=== PATIENT | female | born 1975 | race African-American/Black ===

== ENCOUNTER 2024-08-14 21:19 | Inpatient (IN) | payer OTHER ==
[~2024-08-14] VITALS: Ht 165.1 cm; Wt 77.1 kg
[2024-08-14 22:17] LABS: Basophils # (auto) 0.1 10 ^3/uL (0-0.2); Basophils % (auto) 1.4 % (0.0-2.0); Eosinophils # (auto) 0.1 10 ^3/uL (0-0.8); Eosinophils % (auto) 0.8 % (0.0-7.0); Hematocrit 38.8 % (36.0-46.0); Hemoglobin 12.6 g/dL (12.2-16.2); Lymphocytes # (auto) 2.1 10 ^3/uL (0.4-5.4); Lymphocytes % (auto) 28.9 % (10.0-50.0); Mean Corpuscular Hemoglobin 28.3 pg (28.0-32.0); Mean Corpuscular Hgb Conc. 32.4 g/dL (32.0-36.0); Mean Corpuscular Volume 87.2 fL (80.0-100.0); Monocytes # (auto) 0.7 10 ^3/uL (0-1.3); Monocytes % (auto) 10.1 % (0.0-12.0); Neutrophils # (auto) 4.3 10 ^3/uL (1.6-8.6); Neutrophils % (auto) 58.8 % (37.0-80.0); Nucleated Red Blood Cells % 0.2 %; Platelet Count (auto) 230 10^3/uL (140-450); Red Blood Cells 4.45 10^6/uL (4.0-5.20); Red Cell Distribution Width 14.2 % (11.8-14.3); White Blood Cell 7.4 10^3/uL (4.4-10.8)
[2024-08-14 22:42] LABS: Alanine Aminotransferase 15 U/L (7-40); Albumin 4.3 g/dL (3.2-4.8); Alkaline Phosphatase 60 U/L (46-116); Anion Gap 5 (5-15); Aspartate Aminotransferase 14 U/L (13-40); BUN/Creatinine Ratio 10.5 (10.0-20.0); Calcium 9.9 mg/dL (8.7-10.4); Carbon Dioxide 27 mmol/L (20-31); Glucose 97 mg/dL (74-106); Lipase 31 U/L (12-53); Potassium 4.4 mmol/L (3.5-5.1); Sodium 140 mmol/L (136-145); Total Protein 7.8 g/dL (5.7-8.2)
[2024-08-14 22:43] LABS: Bilirubin, Total 0.8 mg/dL (0.2-1.0)
[2024-08-14 22:45] LABS: Blood Urea Nitrogen 8 mg/dL (9-23); Chloride 108 mmol/L (98-107)
--- NOTE | 2024-08-14 23:53 | ED.PDOC ---
GI ASSESSMENT HPI Comments 49-year-old female who came to ER for abdominal pain. Patient has been complaining of lower abdominal pain for the past 3 days, intermittent, stabbing, associated bouts of nausea and vomiting. Denies any diarrhea. States pain worsened today a checkup to the ER. Chief Complaint: Abdominal Pain Time Seen by MD: 23:51 Primary Care Provider: n/a Reviewed Notes: Nurses Notes Allergies: Coded Allergies: NO KNOWN ALLERGIES (Unverified , 08/14/24) Information Source: Patient Mode of Arrival: Ambulatory Timing: Days Duration: Intermittent Prehospital treatment: None Quality: Sharp, Stabbing Review of Systems REVIEW OF SYSTEMS: No fever, no chills, or fatigue HEENT: No sore throat, no earache, no congestion, no neck pain. Cardiac: No chest pain. No palpitations. Lungs: No shortness of breath, no cough. GI: (+) nausea, (+) vomiting, no diarrhea, no constipation, (+) abdominal pain : No dysuria, frequency, or urgency. No hematuria. Musculoskeletal: No joint pain , no joint swelling, no extremity edema. Skin: No rash, no itching. Neuro: No headache, no dizziness, no weakness Vital Signs Vital Signs Date Time Temp Pulse Resp B/P (MAP) Pulse Ox O2 Delivery O2 Flow Rate FiO2 08/15/24 01:19 66 20 104/76 (85) 100 08/14/24 23:56 Room Air* 0 21 08/14/24 23:41 98.4 98.4 Physical Exam General: Awake, alert and oriented. No acute distress. Skin: Skin in warm, dry and intact. Appropriate color for ethnicity. Nailbeds pink with no cyanosis. HEENT: The head is normocephalic and atraumatic. Conjunctivae are clear without exudates or hemorrhage. Sclera is non-icteric. EOM are intact. No signs of nystagmus. Eyelids are normal in appearance without swelling or lesions. Oral mucosa is pink and moist Neck: The neck is supple with normal range of motion. No JVD. Cardiac: Heart rate and rhythm are normal. No murmurs, gallops, or rubs are auscultated. Respiratory: No signs of respiratory distress. Lung sounds are clear in all lobes bilaterally without rales, ronchi, or wheezes. Abdominal: Abdomen is soft, non-tender without distention. Bowel sounds are present and normoactive in all four quadrants. Extremities: Upper and lower extremities are atraumatic in appearance without deformity or edema. Neurological: The patient is awake, alert and oriented to person, place, and time with normal speech. Speech is clear. There is no facial asymmetry. Psychiatric: Appropriate mood and affect. Good judgement and insight. No visual or auditory hallucinations. 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 Was a procedure done?: No GI differential Dx Differential Diagnosis: Diverticular disease, Gastritis/PUD, Gastroenteritis, Ovarian cyst/torsion, Pancreatitis, UTI, Urolithiasis, Food Poisoning X-Ray, Labs, Meds, VS Vital Signs Date Time Temp Pulse Resp B/P (MAP) Pulse Ox O2 Delivery O2 Flow Rate FiO2 08/15/24 01:19 66 20 104/76 (85) 100 08/15/24 01:08 66 20 104/76 08/15/24 00:17 98 18 127/64 08/14/24 23:56 77 19 97 Room Air* 0 21 08/14/24 23:55 18 20 127/80 08/14/24 23:41 98.4 76 20 112/75 (87) 100 98.4 08/14/24 22:05 98.1 85 16 124/80 (95) 99 98.1 Lab Test 08/14/24 22:06 Range/Units White Blood Count 7.4 4.4-10.8 10^3/uL Red Blood Count 4.45 4.0-5.20 10^6/uL Hemoglobin 12.6 12.2-16.2 g/dL Hematocrit 38.8 36.0-46.0 % Mean Corpuscular Volume 87.2 80.0-100.0 fL Mean Corpuscular Hemoglobin 28.3 28.0-32.0 pg Mean Corpuscular Hemoglobin Concent 32.4 32.0-36.0 g/dL Red Cell Distribution Width 14.2 11.8-14.3 % Platelet Count 230 140-450 10^3/uL Mean Platelet Volume 7.9 6.9-10.8 fL Neutrophils (%) (Auto) 58.8 37.0-80.0 % Lymphocytes (%) (Auto) 28.9 10.0-50.0 % Monocytes (%) (Auto) 10.1 0.0-12.0 % Eosinophils (%) (Auto) 0.8 0.0-7.0 % Basophils (%) (Auto) 1.4 0.0-2.0 % Neutrophils # (Auto) 4.3 1.6-8.6 10 ^3/uL Lymphocytes # (Auto) 2.1 0.4-5.4 10 ^3/uL Monocytes # (Auto) 0.7 0-1.3 10 ^3/uL Eosinophils # (Auto) 0.1 0-0.8 10 ^3/uL Basophils # (Auto) 0.1 0-0.2 10 ^3/uL Nucleated Red Blood Cells 0.2 % Sodium Level 140 136-145 mmol/L Potassium Level 4.4 3.5-5.1 mmol/L Chloride Level 108 H 98-107 mmol/L Carbon Dioxide Level 27 20-31 mmol/L Anion Gap 5 5-15 Blood Urea Nitrogen 8 L 9-23 mg/dL Creatinine 0.76 0.550-1.02 mg/dL Glomerular Filtration Rate Calc 97 >90 mL/min BUN/Creatinine Ratio 10.5 10.0-20.0 Serum Glucose 97 74-106 mg/dL Calcium Level 9.9 8.7-10.4 mg/dL Total Bilirubin 0.8 0.2-1.0 mg/dL Aspartate Amino Transferase (AST) 14 13-40 U/L Alanine Aminotransferase (ALT) 15 7-40 U/L Alkaline Phosphatase 60 46-116 U/L Total Protein 7.8 5.7-8.2 g/dL Albumin 4.3 3.2-4.8 g/dL Lipase 31 12-53 U/L Current Medications Medications (Trade) Dose Ordered Sig/Jorge A Route Start Time Stop Time Status Last Admin Sodium Chloride 1,000 ml @ 1,000 mls/hr Q1H ONCE IV 08/14/24 23:30 08/15/24 00:29 DC 08/14/24 23:55 Ondansetron HCl (Zofran) 4 mg ONCE ONCE IV 08/14/24 23:30 08/14/24 23:31 DC 08/14/24 23:55 Morphine Sulfate 2 mg ONCE ONCE IV 08/14/24 23:30 08/14/24 23:31 DC 08/14/24 23:55 Ketorolac Tromethamine (Toradol Injection) 15 mg ONCE ONCE IV 08/14/24 23:30 08/14/24 23:31 DC 08/14/24 23:55 Metoclopramide HCl (Reglan Injection) 10 mg ONCE ONCE IV 08/15/24 00:45 08/15/24 00:46 DC 08/15/24 01:07 Morphine Sulfate 4 mg ONCE ONCE IV 08/15/24 01:15 08/15/24 01:16 DC 08/15/24 01:08 CT OF THE ABDOMEN AND PELVIS WITH CONTRAST. HISTORY: Left lower quadrant pain, constipation, vomiting COMPARISON: None TECHNIQUE: Helical axial CT images of the abdomen and pelvis were obtained with intravenous contrast. Multiplanar reformats. One or more of the following radiation dose reduction techniques were used for this examination: automated exposure control, adjustment of the mA and/or kV according to patient size, use of iterative reconstruction technique. FINDINGS: Subpleural nodular atelectasis/scarring in the left lower lobe. Serpiginous, vascular lesion in the lingula may represent a pulmonary arterial venous malformation but is otherwise incompletely characterized. Similar smaller findings along the medial left mediastinal/pleural margins. Liver: No discrete hepatic lesions identified. Gallbladder and biliary system: No sizable, radiopaque cholelithiasis or biliary ductal dilatation. Pancreas: Negative. Spleen: Negative. Adrenal Glands: Negative. Kidneys and collecting system: No hydroureteronephrosis. Small cyst in the left upper pole. Retroperitoneum: No evidence of abdominal aortic aneurysm. Lymph nodes: No discretely enlarged lymph nodes identified. Bowel: No evidence of bowel obstruction. Normal caliber appendix. Sigmoid diverticulosis. Thickening and pericolonic inflammation involving the mid to distal sigmoid in the left hemipelvis. No sizable pericolonic fluid collections identified at this time. Pelvis: No sizable bladder calculus. Osseous structures: No destructive osseous lesions identified. IMPRESSION: Sigmoid colitis/diverticulitis. Recommend follow-up to resolution to exclude any underlying lesions. No sizable pericolonic fluid collections identified at this time. Pulmonary findings as above. Time of 1ST Reevaluation: 23:49 Reevaluation 1ST: Unchanged Patient Education/Counseling: Diagnosis, Treatment Family Education/Counseling: No Family Present Departure 1 Departure Time of Disposition: 01:40 Impression: Primary Impression: Diverticulitis Disposition: ADMITTED INPATIENT Condition: Stable Comments Extensive evaluation was performed in attempt to identify or rule out: (See differential diagnosis section) The following tests were ordered, and results were reviewed by me: (See diagnostic results section) The following test were independently interpreted by me: N/A I reviewed and agreed with the following test results read by other providers: N/A I reviewed the following notes from the pt's past medical encounters: (None available at this time) Additional information was gathered from interviewing the following independent historians: N/A Discussion of management or test interpretation with external physician/other qualified health ocular care technologist: N/A Addressed [ ]one or more chronic illnesses with severe exacerbation, progression, or side effects of treatment: [ ]an acute or chronic illness that poses a threat to life or bodily function: [ ] Decision regarding hospitalization or escalation of hospital level of care: Risk and benefits of admission for further treatment of patient's condition was considered. Due to patient's current clinical condition, high risk of decline and poor outcome if discharged and need for further inpatient management and monitoring, patient will be admitted to the hospital. Drug therapy requiring intensive monitoring for toxicity: N/A Parenteral controlled substances: N/A Decision regarding elective major surgery with identified patient or procedure risk factors: N/A Decision regarding emergency major surgery: N/A Decision not to resuscitate or to de-escalate care because of poor prognosis: N/A Diagnosis or treatment significantly limited by social determinants of health: N/A Decision regarding hospitalization or escalation of hospital level of care: R isks and benefits of admission for further treatment of patient's condition was considered however due to patient's stable condition patient will be discharged to follow up closely or return to care for worsening of condition or inability to follow up. Critical Care Note Critical Care Time?: No Stability Stability form required: No Heart Score Heart Score: Heart Score Response (Comments) Value History N/A 0 EKG N/A 0 Age N/A 0 Risk Factors N/A 0 Troponin N/A 0 Total 0 I personally scribed for NEEMA MARTIN MD ([email or web address]) on 08/14/24 at 23:52. Electronically submitted by Matt Quinteros ([email or web address]). I personally scribed for NEEMA MARTIN MD ([email or web address]) on 08/15/24 at 02:18. Electronically submitted by Matt Quinteros ([email or web address]). NEEMA MARTIN MD Aug 14, 2024 23:52
[2024-08-14] MEDS: KETOROLAC TROMETH 30 MG/ML 1ML VIAL IV ONE (23:55)
[2024-08-14] MEDS: ONDANSETRON HCL 4 MG/2 ML VIAL IV ONE (23:55)
[2024-08-14] MEDS: MORPHINE SULFATE INJ 2 MG/ml SYRG IV ONE (23:55)
[2024-08-14] MEDS: SODIUM CHLORIDE 0.9% 1,000 ML IV ONE (23:55)
[2024-08-14 23:56] VITALS: PULSE 77; RESP 19; O2SAT 97
[2024-08-15] VITALS (8 sets, daily range): BP systolic 93–109; BP diastolic 59–75; PULSE 58–88; RESP 14–20; TEMP 97.8–98.7; O2SAT 97–100
[2024-08-15] MEDS: IOHEXOL 300 MG/ML 100ML BOTTLE IJ ONE (00:17)
[2024-08-15] MEDS: METOCLOPRAMIDE HCL 5MG/ml INJ 2ml VIAL IV ONE (01:07)
[2024-08-15] MEDS: MORPHINE SULFATE 4 MG/ML SYR/VIAL IV ONE (01:08)
--- NOTE | 2024-08-15 01:09 | DVH ---
CT OF THE ABDOMEN AND PELVIS WITH CONTRAST. HISTORY: Left lower quadrant pain, constipation, vomiting COMPARISON: None TECHNIQUE: Helical axial CT images of the abdomen and pelvis were obtained with intravenous contrast. Multiplanar reformats. One or more of the following radiation dose reduction techniques were used fo r this examination: automated exposure control, adjustment of the mA and/or kV according to patient s ize, use of iterative reconstruction technique. FINDINGS: Subpleural nodular atelectasis/scarring in the left lower lobe. Serpiginous, vascular lesion in the l ingula may represent a pulmonary arterial venous malformation but is otherwise incompletely character ized. Similar smaller findings along the medial left mediastinal/pleural margins. Liver: No discrete hepatic lesions identified. Gallbladder and biliary system: No sizable, radiopaque cholelithiasis or biliary ductal dilatation. Pancreas: Negative. Spleen: Negative. Adrenal Glands: Negative. Kidneys and collecting system: No hydroureteronephrosis. Small cyst in the left upper pole. Retroperitoneum: No evidence of abdominal aortic aneurysm. Lymph nodes: No discretely enlarged lymph nodes identified. Bowel: No evidence of bowel obstruction. Normal caliber appendix. Sigmoid diverticulosis. Thickening and pericolonic inflammation involving the mid to distal sigmoid in the left hemipelvis. No sizable p ericolonic fluid collections identified at this time. Pelvis: No sizable bladder calculus. Osseous structures: No destructive osseous lesions identified. IMPRESSION: Sigmoid colitis/diverticulitis. Recommend follow-up to resolution to exclude any underlying lesions. No sizable pericolonic fluid collections identified at this time. Pulmonary findings as above.
[2024-08-15] MEDS: metroNIDAZOLE 500MG/100ML 100 ML IV ONE (03:11)
[2024-08-15] MEDS: levoFLOXacin 500MG 100 ML IV ONE (03:52)
[2024-08-15] MEDS ORDERED: ACETAMINOPHEN 325 MG TAB PO PRN (05:15)
[2024-08-15] MEDS ORDERED: MORPHINE SULFATE INJ 2 MG/ml SYRG IV PRN (05:30)
[2024-08-15] MEDS ORDERED: NITROGLYCERIN 0.4 MG SL TAB SL PRN (05:30)
--- NOTE | 2024-08-15 05:32 | DVHHP2 ---
History of Present Illness Reason for Visit: Diverticulitis History of Present Illness The patient is a 49-year-old female with past medical history of colitis who presented to [facility] ED with complaint of abdominal pain. Patient reports she has been experiencing abdominal pain for the past three days, described as stabbing sensation, associated bout of nausea, vomiting, getting worse today that prompted this visit. Patient was seen and evaluated in the ED, laboratory data shows WBC 7.4, platelets 230, sodium 140, potassium 4.4, BUN eight, creatinine 0.76, GFR 97, glucose 97. Abdomen/pelvis CT revealing sigmoid colitis/diverticulitis. Patient was started on IV antibiotic regimen linda Mccann see medication orders section in the computer. On my assessment, patient denied chest pain, no headache, no dizziness, no shortness of breaths, no abdominal pain, nausea, or vomiting at this moment, no fever, no chills. Patient was admitted for further evaluation and medical management. Past Medical History Colitis Past Surgical History Hysterectomy Family History Reviewed, noncontributory to the management of this case. Past Social History The patient lives at home, denies smoking, alcohol or illicit drugs abuse. Review of Systems Constitutional: No: Fever, Chills, Sweats, Weakness, Malaise, Other Eyes: No: Pain, Vision change, Conjunctivae inflammation, Eyelid inflammation, Other, Redness ENT: No: Ear pain, Ear discharge, Nose pain, Nose discharge, Nose congestion, Mouth pain, Mouth swelling, Throat pain, Throat swelling, Other Respiratory: No: Cough, Dry, Shortness of breath, SOB with excertion, Wheezing, Hemoptysis, Pleuritic Pain, Sputum, Wheezing, Other Cardiovascular: No: Chest Pain, Palpitations, Orthopnea, Paroxysmal Noc. Dyspnea, Edema, Lt Headedness, Other Gastrointestinal: Nausea, Vomiting, Abdominal Pain; No: Diarrhea, Constipation, Melena, Hematochezia, Other Genitourinary: No Dysuria, No Frequency, No Incontinence, No Hematuria, No Retention, No Other Musculoskeletal: No: other, neck pain, shoulder pain, arm pain, back pain, hand pain, leg pain, foot pain Skin: No: Rash, Lesions, Jaundice, Bruising, Other Neurological: No: Weakness, Numbness, Incoordination, Change in speech, Confusion, Seizures, Other Allergies: Coded Allergies: NO KNOWN ALLERGIES (Unverified , 3/15/25) Medications Current Medications Medications Dose Ordered Sig/Jorge A Route Start Time Stop Time Status Last Admin Dose Admin Ceftriaxone Sodium 50 ml @ 100 mls/hr DAILY@09 IV 08/15/24 09:00 Metronidazole 100 ml @ 100 mls/hr Q8HR IV 08/15/24 14:00 Pantoprazole Sodium 40 mg DAILY IV 08/15/24 10:00 Sodium Chloride 1,000 ml @ 60 mls/hr [id number] IV 08/15/24 05:15 Acetaminophen/ Hydrocodone Bitart 1 tab Q4HP PRN PO 08/15/24 05:15 Ondansetron HCl 4 mg Q4HP PRN IV 08/15/24 05:15 Docusate Sodium 100 mg BIDPRN PRN PO 08/15/24 05:15 Acetaminophen 650 mg Q6HP PRN PO 08/15/24 05:15 Morphine Sulfate 2 mg Q4HPRN PRN IV 08/15/24 05:15 Exam Vital Signs Vital Signs Date Time Temp Pulse Resp B/P (MAP) Pulse Ox O2 Delivery O2 Flow Rate FiO2 08/15/24 02:30 69 17 127/87 08/15/24 02:30 99.2 97 99.2 08/14/24 23:56 Room Air* 0 21 General Appearance: Alert, Oriented X3, Cooperative, No acute distress HEENT: Atraumatic, PERRLA, EOMI, Mucous membr. moist/pink Respiratory: Clear to auscultation, Normal air movement Cardiovascular: Regular rate, Normal S1, Normal S2, No murmurs Abdominal: Normal bowel sounds, Soft, No hepatospenomegaly, No masses, Other (Reports tenderness) Extremities: No clubbing, No cyanosis, No edema, Normal pulses, No tenderness/swelling Skin: No rashes, No breakdown, No significant lesion Neuro: Normal gait, Normal speech, Strength at 5/5 X4 ext, Normal tone, Sensation intact, Cranial nerves 3-12 NL, Reflexes 2+ Psych/Mental Status: Mental status NL, Mood NL Labs/Xrays Labs Test 08/14/24 22:06 Range/Units White Blood Count 7.4 4.4-10.8 10^3/uL Red Blood Count 4.45 4.0-5.20 10^6/uL Hemoglobin 12.6 12.2-16.2 g/dL Hematocrit 38.8 36.0-46.0 % Mean Corpuscular Volume 87.2 80.0-100.0 fL Mean Corpuscular Hemoglobin 28.3 28.0-32.0 pg Mean Corpuscular Hemoglobin Concent 32.4 32.0-36.0 g/dL Red Cell Distribution Width 14.2 11.8-14.3 % Platelet Count 230 140-450 10^3/uL Mean Platelet Volume 7.9 6.9-10.8 fL Neutrophils (%) (Auto) 58.8 37.0-80.0 % Lymphocytes (%) (Auto) 28.9 10.0-50.0 % Monocytes (%) (Auto) 10.1 0.0-12.0 % Eosinophils (%) (Auto) 0.8 0.0-7.0 % Basophils (%) (Auto) 1.4 0.0-2.0 % Neutrophils # (Auto) 4.3 1.6-8.6 10 ^3/uL Lymphocytes # (Auto) 2.1 0.4-5.4 10 ^3/uL Monocytes # (Auto) 0.7 0-1.3 10 ^3/uL Eosinophils # (Auto) 0.1 0-0.8 10 ^3/uL Basophils # (Auto) 0.1 0-0.2 10 ^3/uL Nucleated Red Blood Cells 0.2 % Sodium Level 140 136-145 mmol/L Potassium Level 4.4 3.5-5.1 mmol/L Chloride Level 108 H 98-107 mmol/L Carbon Dioxide Level 27 20-31 mmol/L Anion Gap 5 5-15 Blood Urea Nitrogen 8 L 9-23 mg/dL Creatinine 0.76 0.550-1.02 mg/dL Glomerular Filtration Rate Calc 97 >90 mL/min BUN/Creatinine Ratio 10.5 10.0-20.0 Serum Glucose 97 74-106 mg/dL Calcium Level 9.9 8.7-10.4 mg/dL Total Bilirubin 0.8 0.2-1.0 mg/dL Aspartate Amino Transferase (AST) 14 13-40 U/L Alanine Aminotransferase (ALT) 15 7-40 U/L Alkaline Phosphatase 60 46-116 U/L Total Protein 7.8 5.7-8.2 g/dL Albumin 4.3 3.2-4.8 g/dL Lipase 31 12-53 U/L PATIENT: ADITHYA OBRIEN ACCT: [id number] UNIT: [id number] : 1975 LOC: ER ROOM / BED: / AGE / SEX: 49 / F ADM STATUS: REG ER SERVICE [id number] ORDERING PHYSICIAN: NEEMA MARTIN MD PROCEDURE(s): ABPLIV - CT AB PEL WITH IV CON ONLY REASON: Left lower quadrant pain, constipation, vomiting ORDER NUMBER(s): [id number], ACCESSION NUMBER(s): [id number] CT OF THE ABDOMEN AND PELVIS WITH CONTRAST. HISTORY: Left lower quadrant pain, constipation, vomiting COMPARISON: None TECHNIQUE: Helical axial CT images of the abdomen and pelvis were obtained with intravenous contrast. Multiplanar reformats. One or more of the following radiation dose reduction techniques were used for this examination: automated exposure control, adjustment of the mA and/or kV according to patient size, use of iterative reconstruction technique. FINDINGS: Subpleural nodular atelectasis/scarring in the left lower lobe. Serpiginous, vascular lesion in the lingula may represent a pulmonary arterial venous mal formation but is otherwise incompletely characterized. Similar smaller findings along the medial left mediastinal/pleural margins. Liver: No discrete hepatic lesions identified. Gallbladder and biliary system: No sizable, radiopaque cholelithiasis or biliary ductal dilatation. Pancreas: Negative. Spleen: Negative. Adrenal Glands: Negative. Kidneys and collecting system: No hydroureteronephrosis. Small cyst in the left upper pole. Retroperitoneum: No evidence of abdominal aortic aneurysm. Lymph nodes: No discretely enlarged lymph nodes identified. Bowel: No evidence of bowel obstruction. Normal caliber appendix. Sigmoid diverticulosis. Thickening and pericolonic inflammation involving the mid to distal sigmoid in the left hemipelvis. No sizable pericolonic fluid collections identified at this time. Pelvis: No sizable bladder calculus. Osseous structures: No destructive osseous lesions identified. IMPRESSION: Sigmoid colitis/diverticulitis. Recommend follow-up to resolution to exclude any underlying lesions. No sizable pericolonic fluid collections identified at this time. Pulmonary findings as above. Assessment/Plan Assessment/Plan Diverticulitis Acute abdominal pain Plan 1. Admit to med surge unit 2. Breathing treatment 3. Pain control management 4. IV antibiotic management 5. Management of fluids and electrolytes 6. Consultation for hospitalist 7. Diagnostic test abdomen/pelvis CT 8. DVT prophylaxis-on SCDs 9. Repeat labs CBC, CMP in a.m. 10. Continue with current medical management 11. Treatment plan discussed with patient and RN. Patient verbalized understanding. Plan discussed with: Patient, Other (RN) My Orders Orders - MAGY LAND DNP Procedure Category Date Status Time Complete Blood Count LAB 08/15/24 Logged 05:01 Comprehensive LAB 08/15/24 Logged Metabolic Panel 05:01 Ceftriaxone 1gm/50ml PHA 08/15/24 In Process D5w (Rocephin) 09:00 Metronidazole PHA 08/15/24 In Process 500mg/100ml (Flagyl 14:00 Pantoprazole PHA 08/15/24 In Process (Protonix) 10:00 Allergies CANDY 08/15/24 In Process 05:01 Code Status CODE 08/15/24 Transmitted 05:01 Sodium Chloride 0.9% PHA 08/15/24 In Process 05:15 Oxygen Per Hour RT 08/15/24 Transmitted 05:01 Hydrocodone-Acet PHA 08/15/24 In Process 5/325mg Tab ([place] 05:15 Ondansetron Hcl PHA 08/15/24 In Process (Zofran) 05:15 Docusate Sodium PHA 08/15/24 In Process Capsule (Colace 05:15 Complete Blood Count LAB 08/16/24 Verified 04:00 Comprehensive LAB 08/16/24 Verified Metabolic Panel 04:00 Condition: Serious CANDY 08/15/24 In Process 05:01 Acetaminophen Tablet PHA 08/15/24 In Process (Tylenol Tablet) 05:15 Clear Liq Diet DIET 08/15/24 Transmitted Breakfast Bedrest With Bathroom CANDY 08/15/24 In Process Privileg 05:01 Morphine Sulfate PHA 08/15/24 In Process Injection 05:15 Sequential CANDY 08/15/24 In Process Compression Device Problem List: (1) Diverticulitis (2) Acute abdominal pain Date of Service: Aug 15, 2024 Billing Provider: MAGY LAND DNP Common Visit Codes: [id number] INP/OBS CARE (HIGH) MAGY LAND DNP Aug 15, 2024 05:32
[2024-08-15] MEDS: SODIUM CHLORIDE 0.9% 1,000 ML IV SCH ×2 (05:33→13:37)
[2024-08-15] MEDS: MORPHINE SULFATE INJ 2 MG/ml SYRG IV PRN (05:37)
[2024-08-15 06:04] LABS: Basophils # (auto) 0.1 10 ^3/uL (0-0.2); Basophils % (auto) 0.7 % (0.0-2.0); Eosinophils # (auto) 0.1 10 ^3/uL (0-0.8); Eosinophils % (auto) 0.7 % (0.0-7.0); Hematocrit 36.4 % (36.0-46.0); Hemoglobin 11.9 g/dL (12.2-16.2); Lymphocytes # (auto) 2.5 10 ^3/uL (0.4-5.4); Lymphocytes % (auto) 33.2 % (10.0-50.0); Mean Corpuscular Hemoglobin 28.6 pg (28.0-32.0); Mean Corpuscular Hgb Conc. 32.8 g/dL (32.0-36.0); Mean Corpuscular Volume 87.3 fL (80.0-100.0); Monocytes # (auto) 0.8 10 ^3/uL (0-1.3); Neutrophils % (auto) 54.4 % (37.0-80.0); Nucleated Red Blood Cells % 0.1 %; Platelet Count (auto) 210 10^3/uL (140-450); Red Blood Cells 4.17 10^6/uL (4.0-5.20); Red Cell Distribution Width 14.5 % (11.8-14.3); White Blood Cell 7.4 10^3/uL (4.4-10.8)
[2024-08-15 06:20] LABS: Alanine Aminotransferase 14 U/L (7-40); Albumin 3.6 g/dL (3.2-4.8); Alkaline Phosphatase 52 U/L (46-116); Anion Gap 6 (5-15); Aspartate Aminotransferase 14 U/L (13-40); Calcium 8.7 mg/dL (8.7-10.4); Carbon Dioxide 28 mmol/L (20-31); Chloride 106 mmol/L (98-107); Glucose 89 mg/dL (74-106); Potassium 3.6 mmol/L (3.5-5.1); Sodium 140 mmol/L (136-145); Total Protein 6.5 g/dL (5.7-8.2)
[2024-08-15 06:35] LABS: Blood Urea Nitrogen 7 mg/dL (9-23)
[2024-08-15 07:16] LABS: Urine Bacteria None Seen /hpf (None Seen)
[2024-08-15 07:24] LABS: Urine Blood Negative /uL (Negative); Urine Clarity Clear (Clear); Urine Color Yellow (Yellow); Urine Mucus FEW (None Seen); Urine Protein, UAD 1+ (Negative); Urine Squamous Epithelial Cell FEW /hpf (<5); Urine Urobilinogen Normal (Negative); Urine WBC 1 /HPF (0-5)
[2024-08-15 07:25] LABS: Urine Specific Gravity > 1.050 (1.001-1.035)
[2024-08-15] MEDS: HYDROcodone-ACET 5/325MG TAB PO PRN (07:27)
[2024-08-15] MEDS: cefTRIAXone 1GM/50ML D5W 50 ML IV SCH (09:59)
[2024-08-15] MEDS: ONDANSETRON HCL 4 MG/2 ML VIAL IV PRN (10:00)
[2024-08-15] MEDS: PANTOPRAZOLE 40 MG/10 ML VIAL INJ IV SCH (10:22)
[2024-08-15] MEDS: DOCUSATE SOD 100 MG CAP PO PRN (10:22)
--- NOTE | 2024-08-15 12:48 | DVHPN2 ---
Reviewed: Care Plan, H&P, Labs, Medications, Previous Orders, Radiology Changes from previous H/P or p: No Changes Eyes: No Pain, No Vision change, No Conjunctivae inflammation, No Eyelid inflammation, No Other, No Redness ENT: No Ear pain, No Ear discharge, No Nose pain, No Nose discharge, No Nose congestion, No Mouth pain, No Mouth swelling, No Throat pain, No Throat swelling, No Other Cardiovascular: No Chest Pain, No Palpitations, No Orthopnea, No Paroxysmal Noc. Dyspnea, No Edema, No Lt Headedness, No Other Respiratory: No Cough, No Dry, No Shortness of breath, No SOB with excertion, No Wheezing, No Hemoptysis, No Pleuritic Pain, No Sputum, No Other Gastrointestinal: Nausea, Vomiting, Abdominal Pain; No Diarrhea, No Constipation, No Melena, No Hematochezia, No Other Genitourinary: No Dysuria, No Frequency, No Incontinence, No Hematuria, No Retention, No Other Musculoskeletal: No other, No neck pain, No shoulder pain, No arm pain, No back pain, No hand pain, No leg pain, No foot pain Skin: No Rash, No Lesions, No Jaundice, No Bruising, No Other Objective Vitals Vital Signs Date Time Temp Pulse Resp B/P (MAP) Pulse Ox O2 Delivery O2 Flow Rate FiO2 08/15/24 11:53 80 18 108/88 08/15/24 09:00 98.0 98 98.0 08/15/24 02:30 Room Air* 0 21 Intake/Output Intake and Output 08/15/24 07:00 Intake Total 1100 ml Balance 1100 ml IV Total 1100 ml Medications Current Medications Medications Dose Ordered Sig/Jorge A Route Start Time Stop Time Status Last Admin Dose Admin Ceftriaxone Sodium 50 ml @ 100 mls/hr DAILY@09 IV 08/15/24 09:00 08/15/24 09:59 100 MLS/HR Metronidazole 100 ml @ 100 mls/hr Q8HR IV 08/15/24 14:00 Pantoprazole Sodium 40 mg DAILY IV 08/15/24 10:00 08/15/24 10:22 40 MG Sodium Chloride 1,000 ml @ 60 mls/hr [id number] IV 08/15/24 05:15 08/15/24 05:33 60 MLS/HR Acetaminophen/ Hydrocodone Bitart 1 tab Q4HP PRN PO 08/15/24 05:15 08/15/24 07:27 1 TAB Ondansetron HCl 4 mg Q4HP PRN IV 08/15/24 05:15 08/15/24 10:00 4 MG Docusate Sodium 100 mg BIDPRN PRN PO 08/15/24 05:15 08/15/24 10:22 100 MG Acetaminophen 650 mg Q6HP PRN PO 08/15/24 05:15 Morphine Sulfate 2 mg Q4HPRN PRN IV 08/15/24 05:15 08/15/24 11:53 2 MG Nitroglycerin 0.4 mg Q5MINP PRN SL 08/15/24 05:30 Morphine Sulfate 2 mg Q30M PRN IV 08/15/24 05:30 Laboratory Results Laboratory Tests 08/15/24 05:48 Chemistry Test 08/14/24 22:06 08/15/24 05:48 Albumin 4.3 g/dL (3.2-4.8) 3.6 g/dL (3.2-4.8) Calcium Level 9.9 mg/dL (8.7-10.4) 8.7 mg/dL (8.7-10.4) Total Protein 7.8 g/dL (5.7-8.2) 6.5 g/dL (5.7-8.2) Lipid panel Test 08/14/24 22:06 Lipase 31 U/L (12-53) LFT Test 08/14/24 22:06 08/15/24 05:48 Alanine Aminotransferase (ALT) 15 U/L (7-40) 14 U/L (7-40) Alkaline Phosphatase 60 U/L (46-116) 52 U/L (46-116) Aspartate Amino Transferase (AST) 14 U/L (13-40) 14 U/L (13-40) Total Bilirubin 0.8 mg/dL (0.2-1.0) 1.0 mg/dL (0.2-1.0) Urinalysis Test 08/15/24 07:14 Urine Color Yellow (Yellow) Urine Clarity Clear (Clear) Urine pH 6.0 (5.0-9.0) Urine Specific [place] > 1.050 (1.001-1.035) Urine Protein 1+ (Negative) H Urine Ketones Negative (Negative) Urine Blood Negative /uL (Negative) Urine Nitrite Negative (Negative) Urine Bilirubin Negative (Negative) Urine Urobilinogen Normal mg/dL (Negative) Urine Leukocyte Esterase Negative /uL (Negative) Urine RBC 3 /hpf (0 - 4) Urine Microscopic WBC 1 /HPF (0-5) Urine Squamous Epithelial Cells Few /hpf (<5) Urine Bacteria None seen /hpf (None Seen) Urine Mucus Few (None Seen) Urine Glucose Normal mg/dL (Normal) Urine Test Negative (Negative) Labs and/or images reviewed: Labs reviewed by me, Image(s) reviewed by me Assessment/Plan Assessment/Plan Acute abdominal pain Acute diverticulitis: Rocephin Flagyl pain medications Dilaudid IV fluids Acute dehydration: IV fluids History of colitis and diverticulitis Plan discussed with: Patient Date of Service: Aug 15, 2024 Billing Provider: BILLY JAMES MD Common Visit Codes: [id number] INP/OBS CARE(HIGH) BILLY JAMES MD Aug 15, 2024 12:48
[2024-08-15] MEDS: metroNIDAZOLE 500MG/100ML 100 ML IV SCH (13:35)
[2024-08-15] MEDS: HYDROmorphone HCL 2 MG/ML VL/or syr IV PRN (13:36)
[2024-08-16] VITALS (7 sets, daily range): BP systolic 91–125; BP diastolic 58–77; PULSE 61–83; RESP 17–18; TEMP 98–99.1; O2SAT 93–99
[2024-08-16] MEDS: diphenhdrAMINE HCL 25 MG CAP PO ONE ×2 (04:41→23:08)
[2024-08-16 06:19] LABS: Basophils # (auto) 0 10 ^3/uL (0-0.2); Basophils % (auto) 0.6 % (0.0-2.0); Eosinophils # (auto) 0.1 10 ^3/uL (0-0.8); Eosinophils % (auto) 1.4 % (0.0-7.0); Hematocrit 33.7 % (36.0-46.0); Hemoglobin 10.9 g/dL (12.2-16.2); Lymphocytes # (auto) 1.6 10 ^3/uL (0.4-5.4); Lymphocytes % (auto) 37.2 % (10.0-50.0); Mean Corpuscular Hemoglobin 28.6 pg (28.0-32.0); Mean Corpuscular Hgb Conc. 32.5 g/dL (32.0-36.0); Mean Corpuscular Volume 87.8 fL (80.0-100.0); Monocytes # (auto) 0.6 10 ^3/uL (0-1.3); Monocytes % (auto) 14.5 % (0.0-12.0); Neutrophils # (auto) 1.9 10 ^3/uL (1.6-8.6); Neutrophils % (auto) 46.3 % (37.0-80.0); Nucleated Red Blood Cells % 0.2 %; Platelet Count (auto) 191 10^3/uL (140-450); Red Blood Cells 3.83 10^6/uL (4.0-5.20); Red Cell Distribution Width 14.2 % (11.8-14.3); White Blood Cell 4.2 10^3/uL (4.4-10.8)
[2024-08-16 06:36] LABS: Alanine Aminotransferase 14 U/L (7-40); Albumin 3.2 g/dL (3.2-4.8); Anion Gap 7 (5-15); Aspartate Aminotransferase 16 U/L (13-40); Calcium 8.7 mg/dL (8.7-10.4); Carbon Dioxide 23 mmol/L (20-31); Glucose 84 mg/dL (74-106); Potassium 3.9 mmol/L (3.5-5.1); Sodium 138 mmol/L (136-145); Total Protein 5.9 g/dL (5.7-8.2)
[2024-08-16 06:37] LABS: Bilirubin, Total 0.8 mg/dL (0.2-1.0)
[2024-08-16 06:38] LABS: Alkaline Phosphatase 42 U/L (46-116); Blood Urea Nitrogen < 5 mg/dL (9-23); Chloride 108 mmol/L (98-107)
--- NOTE | 2024-08-16 12:52 | DVHPN2 ---
Reviewed: Care Plan, H&P, Labs, Medications, Previous Orders, Radiology Changes from previous H/P or p: No Changes Eyes: No Pain, No Vision change, No Conjunctivae inflammation, No Eyelid inflammation, No Other, No Redness ENT: No Ear pain, No Ear discharge, No Nose pain, No Nose discharge, No Nose congestion, No Mouth pain, No Mouth swelling, No Throat pain, No Throat swelling, No Other Cardiovascular: No Chest Pain, No Palpitations, No Orthopnea, No Paroxysmal Noc. Dyspnea, No Edema, No Lt Headedness, No Other Respiratory: No Cough, No Dry, No Shortness of breath, No SOB with excertion, No Wheezing, No Hemoptysis, No Pleuritic Pain, No Sputum, No Other Gastrointestinal: Nausea, Vomiting, Abdominal Pain; No Diarrhea, No Constipation, No Melena, No Hematochezia, No Other Genitourinary: No Dysuria, No Frequency, No Incontinence, No Hematuria, No Retention, No Other Musculoskeletal: No other, No neck pain, No shoulder pain, No arm pain, No back pain, No hand pain, No leg pain, No foot pain Skin: No Rash, No Lesions, No Jaundice, No Bruising, No Other Objective Vitals Vital Signs Date Time Temp Pulse Resp B/P (MAP) Pulse Ox O2 Delivery O2 Flow Rate FiO2 08/16/24 10:54 68 20 112/73 08/16/24 09:00 98.7 99 98.7 08/16/24 08:10 Room Air* 0 21 Intake/Output Intake and Output 08/16/24 07:00 Intake Total 2240 ml Balance 2240 ml Intake Oral 1490 ml IV Total 750 ml # Voids 4 Medications Current Medications Medications Dose Ordered Sig/Jorge A Route Start Time Stop Time Status Last Admin Dose Admin Ceftriaxone Sodium 50 ml @ 100 mls/hr DAILY@09 IV 08/15/24 09:00 08/16/24 10:05 100 MLS/HR Metronidazole 100 ml @ 100 mls/hr Q8HR IV 08/15/24 14:00 08/16/24 05:58 100 MLS/HR Pantoprazole Sodium 40 mg DAILY IV 08/15/24 10:00 08/16/24 10:14 40 MG Ondansetron HCl 4 mg Q4HP PRN IV 08/15/24 05:15 08/16/24 10:47 4 MG Docusate Sodium 100 mg BIDPRN PRN PO 08/15/24 05:15 08/15/24 10:22 100 MG Nitroglycerin 0.4 mg Q5MINP PRN SL 08/15/24 05:30 Hydromorphone HCl 2 mg Q4HPRN PRN IV 08/15/24 13:00 08/16/24 10:54 2 MG Sodium Chloride 1,000 ml @ 150 mls/hr Q6H40M IV 08/15/24 13:15 08/16/24 10:05 150 MLS/HR Laboratory Results Laboratory Tests 08/16/24 05:16 Chemistry Test 08/16/24 05:16 Albumin 3.2 g/dL (3.2-4.8) Calcium Level 8.7 mg/dL (8.7-10.4) Total Protein 5.9 g/dL (5.7-8.2) LFT Test 08/16/24 05:16 Alanine Aminotransferase (ALT) 14 U/L (7-40) Alkaline Phosphatase 42 U/L (46-116) L Aspartate Amino Transferase (AST) 16 U/L (13-40) Total Bilirubin 0.8 mg/dL (0.2-1.0) Urinalysis Test 08/15/24 07:14 Urine Color Yellow (Yellow) Urine Clarity Clear (Clear) Urine pH 6.0 (5.0-9.0) Urine Specific [place] > 1.050 (1.001-1.035) Urine Protein 1+ (Negative) H Urine Ketones Negative (Negative) Urine Blood Negative /uL (Negative) Urine Nitrite Negative (Negative) Urine Bilirubin Negative (Negative) Urine Urobilinogen Normal mg/dL (Negative) Urine Leukocyte Esterase Negative /uL (Negative) Urine RBC 3 /hpf (0 - 4) Urine Microscopic WBC 1 /HPF (0-5) Urine Squamous Epithelial Cells Few /hpf (<5) Urine Bacteria None seen /hpf (None Seen) Urine Mucus Few (None Seen) Urine Glucose Normal mg/dL (Normal) Urine Test Negative (Negative) Labs and/or images reviewed: Labs reviewed by me, Image(s) reviewed by me Assessment/Plan Assessment/Plan Acute abdominal pain Acute diverticulitis: Rocephin Flagyl pain medications Dilaudid IV fluids Acute dehydration: IV fluids History of colitis and diverticulitis Patient Feeling better and wants to eat Regular diet Plan discussed with: Patient My Orders Orders - BILLY JAMES MD Procedure Category Date Status Time Hydromorphone PHA 08/15/24 In Process Injection (Dilaudid 13:00 Sodium Chloride 0.9% PHA 08/15/24 In Process 13:15 Date of Service: Aug 16, 2024 Billing Provider: BILLY JAMES MD Common Visit Codes: [id number] INP/OBS CARE(HIGH) BILLY JAMES MD Aug 16, 2024 12:52
[2024-08-17 01:00] VITALS: BP 122/75; PULSE 75; RESP 18; TEMP 97.9; O2SAT 100
[2024-08-17 05:00] VITALS: BP 118/64; PULSE 70; RESP 17; TEMP 97.5; O2SAT 96
[2024-08-17 09:00] VITALS: BP 102/70; PULSE 79; RESP 17; TEMP 98.5; O2SAT 98
--- NOTE | 2024-08-17 12:11 | DVHPN2 ---
Reviewed: Care Plan, H&P, Labs, Medications, Previous Orders, Radiology Changes from previous H/P or p: No Changes Eyes: No Pain, No Vision change, No Conjunctivae inflammation, No Eyelid inflammation, No Other, No Redness ENT: No Ear pain, No Ear discharge, No Nose pain, No Nose discharge, No Nose congestion, No Mouth pain, No Mouth swelling, No Throat pain, No Throat swelling, No Other Cardiovascular: No Chest Pain, No Palpitations, No Orthopnea, No Paroxysmal Noc. Dyspnea, No Edema, No Lt Headedness, No Other Respiratory: No Cough, No Dry, No Shortness of breath, No SOB with excertion, No Wheezing, No Hemoptysis, No Pleuritic Pain, No Sputum, No Other Gastrointestinal: Nausea, Vomiting, Abdominal Pain; No Diarrhea, No Constipation, No Melena, No Hematochezia, No Other Genitourinary: No Dysuria, No Frequency, No Incontinence, No Hematuria, No Retention, No Other Musculoskeletal: No other, No neck pain, No shoulder pain, No arm pain, No back pain, No hand pain, No leg pain, No foot pain Skin: No Rash, No Lesions, No Jaundice, No Bruising, No Other Objective Vitals Vital Signs Date Time Temp Pulse Resp B/P (MAP) Pulse Ox O2 Delivery O2 Flow Rate FiO2 08/17/24 09:00 98.5 79 17 102/70 (81) 98 98.5 08/16/24 20:00 Room Air* 0 21 Intake/Output Intake and Output 08/17/24 07:00 Intake Total 3236 ml Balance 3236 ml Intake Oral 2086 ml IV Total 1150 ml # Voids 9 Medications Current Medications Medications Dose Ordered Sig/Jorge A Route Start Time Stop Time Status Last Admin Dose Admin Ceftriaxone Sodium 50 ml @ 100 mls/hr DAILY@09 IV 08/15/24 09:00 08/17/24 10:24 100 MLS/HR Metronidazole 100 ml @ 100 mls/hr Q8HR IV 08/15/24 14:00 08/17/24 06:28 100 MLS/HR Pantoprazole Sodium 40 mg DAILY IV 08/15/24 10:00 08/17/24 10:22 40 MG Ondansetron HCl 4 mg Q4HP PRN IV 08/15/24 05:15 08/17/24 02:24 4 MG Docusate Sodium 100 mg BIDPRN PRN PO 08/15/24 05:15 08/15/24 10:22 100 MG Nitroglycerin 0.4 mg Q5MINP PRN SL 08/15/24 05:30 Hydromorphone HCl 2 mg Q4HPRN PRN IV 08/15/24 13:00 08/16/24 22:16 2 MG Sodium Chloride 1,000 ml @ 150 mls/hr Q6H40M IV 08/15/24 13:15 08/17/24 06:29 150 MLS/HR Laboratory Results Laboratory Tests 08/16/24 05:16 Urinalysis Test 08/15/24 07:14 Urine Color Yellow (Yellow) Urine Clarity Clear (Clear) Urine pH 6.0 (5.0-9.0) Urine Specific [place] > 1.050 (1.001-1.035) Urine Protein 1+ (Negative) H Urine Ketones Negative (Negative) Urine Blood Negative /uL (Negative) Urine Nitrite Negative (Negative) Urine Bilirubin Negative (Negative) Urine Urobilinogen Normal mg/dL (Negative) Urine Leukocyte Esterase Negative /uL (Negative) Urine RBC 3 /hpf (0 - 4) Urine Microscopic WBC 1 /HPF (0-5) Urine Squamous Epithelial Cells Few /hpf (<5) Urine Bacteria None seen /hpf (None Seen) Urine Mucus Few (None Seen) Urine Glucose Normal mg/dL (Normal) Urine Test Negative (Negative) Labs and/or images reviewed: Labs reviewed by me, Image(s) reviewed by me Assessment/Plan Assessment/Plan Acute abdominal pain Acute diverticulitis: Rocephin Flagyl pain medications ; patient is having nausea for Dilaudid, we will DC Dilaudid and started on Toradol Acute dehydration: IV fluids History of colitis and diverticulitis Patient Feeling better and wants to eat Regular diet Patient is not feeling better today we will consult GI Dr. Tre Philip Plan discussed with: Patient My Orders Orders - BILLY JAMES MD Procedure Category Date Status Time Regular Diet DIET 08/16/24 Transmitted Lunch Date of Service: Aug 17, 2024 Billing Provider: BILLY JAMES MD Common Visit Codes: [id number] INP/OBS CARE(HIGH) BILLY JAMES MD Aug 17, 2024 12:11
[2024-08-17 13:00] VITALS: BP 106/69; PULSE 73; RESP 17; TEMP 98.1; O2SAT 98
--- NOTE | 2024-08-17 15:09 | DVHCONRES ---
Date Seen: Aug 17, 2024 Resident Creating Document: CLAU DAVILA RESIDENT Referring Physician Dr. Villagran History of Present Illness 49-year-old female who came to ER for abdominal pain. Patient has been complaining of lower abdominal pain for the past 3 days, intermittent, stabbing, associated bouts of nausea and vomiting. Denies any diarrhea. Patient seen and examined at bedside, patient is still complaining of abdominal pain, advised patient to continue clear liquid diet as patient is not tolerating soft diet. Family History: Cardiovascular disease G8 MOTHER Allergies: Coded Allergies: NO KNOWN ALLERGIES (Unverified , 08/14/24) Current Medications Current Medications Medications (Trade) Dose Ordered Sig/Jorge A Route PRN Reason Start Time Stop Time Status Last Admin Ketorolac Tromethamine (Toradol Injection) 30 mg Q6HPRN PRN IV MILD PAIN (1-3 PAIN SCALE) 08/17/24 12:15 08/22/24 12:14 Review of Systems No fever, no chills, or fatigue HEENT: No sore throat, no earache, no congestion, no neck pain. Cardiac: No chest pain. No palpitations. Lungs: No shortness of breath, no cough. GI: (+) nausea, (+) vomiting, no diarrhea, no constipation, (+) abdominal pain : No dysuria, frequency, or urgency. No hematuria. Musculoskeletal: No joint pain , no joint swelling, no extremity edema. Skin: No rash, no itching. Neuro: No headache, no dizziness, no weakness Vital Signs Vital Signs Date Time Temp Pulse Resp B/P (MAP) Pulse Ox O2 Delivery O2 Flow Rate FiO2 08/17/24 13:00 98.1 73 17 106/69 (81) 98 98.1 08/16/24 20:00 Room Air* 0 21 Physical Exam General: Awake, alert and oriented. No acute distress. Skin: Skin in warm, dry and intact. Appropriate color for ethnicity. Nailbeds pink with no cyanosis. HEENT: The head is normocephalic and atraumatic. Conjunctivae are clear without exudates or hemorrhage. Sclera is non-icteric. EOM are intact. No signs of nystagmus. Eyelids are normal in appearance without swelling or lesions. Oral mucosa is pink and moist Neck: The neck is supple with normal range of motion. No JVD. Cardiac: Heart rate and rhythm are normal. No murmurs, gallops, or rubs are auscultated. Respiratory: No signs of respiratory distress. Lung sounds are clear in all lobes bilaterally without rales, ronchi, or wheezes. Abdominal: Abdomen is soft, non-tender without distention. Bowel sounds are present and normoactive in all four quadrants. Extremities: Upper and lower extremities are atraumatic in appearance without deformity or edema. Neurological: The patient is awake, alert and oriented to person, place, and time with normal speech. Labs/Diagnostic Data Labs Test 08/16/24 05:16 08/15/24 07:14 08/14/24 22:06 Range/Units White Blood Count 4.2 #L 4.4-10.8 10^3/uL Red Blood Count 3.83 L 4.0-5.20 10^6/uL Hemoglobin 10.9 L 12.2-16.2 g/dL Hematocrit 33.7 L 36.0-46.0 % Mean Corpuscular Volume 87.8 80.0-100.0 fL Mean Corpuscular Hemoglobin 28.6 28.0-32.0 pg Mean Corpuscular Hemoglobin Concent 32.5 32.0-36.0 g/dL Red Cell Distribution Width 14.2 11.8-14.3 % Platelet Count 191 140-450 10^3/uL Mean Platelet Volume 9.1 6.9-10.8 fL Neutrophils (%) (Auto) 46.3 37.0-80.0 % Lymphocytes (%) (Auto) 37.2 10.0-50.0 % Monocytes (%) (Auto) 14.5 H 0.0-12.0 % Eosinophils (%) (Auto) 1.4 0.0-7.0 % Basophils (%) (Auto) 0.6 0.0-2.0 % Neutrophils # (Auto) 1.9 1.6-8.6 10 ^3/uL Lymphocytes # (Auto) 1.6 0.4-5.4 10 ^3/uL Monocytes # (Auto) 0.6 0-1.3 10 ^3/uL Eosinophils # (Auto) 0.1 0-0.8 10 ^3/uL Basophils # (Auto) 0 0-0.2 10 ^3/uL Nucleated Red Blood Cells 0.2 % Sodium Level 138 136-145 mmol/L Potassium Level 3.9 3.5-5.1 mmol/L Chloride Level 108 H 98-107 mmol/L Carbon Dioxide Level 23 20-31 mmol/L Anion Gap 7 5-15 Blood Urea Nitrogen < 5 L 9-23 mg/dL Creatinine 0.71 0.550-1.02 mg/dL Glomerular Filtration Rate Calc 105 >90 mL/min BUN/Creatinine Ratio 7.0 L 10.0-20.0 Serum Glucose 84 74-106 mg/dL Calcium Level 8.7 8.7-10.4 mg/dL Total Bilirubin 0.8 0.2-1.0 mg/dL Aspartate Amino Transferase (AST) 16 13-40 U/L Alanine Aminotransferase (ALT) 14 7-40 U/L Alkaline Phosphatase 42 L 46-116 U/L Total Protein 5.9 5.7-8.2 g/dL Albumin 3.2 3.2-4.8 g/dL Urine Color Yellow Yellow Urine Clarity Clear Clear Urine pH 6.0 5.0-9.0 Urine Specific [place] > 1.050 H 1.001-1.035 Urine Protein 1+ H Negative Urine Ketones Negative Negative Urine Blood Negative Negative /uL Urine Nitrite Negative Negative Urine Bilirubin Negative Negative Urine Urobilinogen Normal Negative mg/dL Urine Leukocyte Esterase Negative Negative /uL Urine RBC 3 0 - 4 /hpf Urine Microscopic WBC 1 0-5 /HPF Urine Squamous Epithelial Cells Few <5 /hpf Urine Bacteria None seen None Seen /hpf Urine Mucus Few None Seen Urine Glucose Normal Normal mg/dL Urine Test Negative Negative Lipase 31 12-53 U/L Assessment # Acute abdominal pain # Acute diverticulitis: # Acute dehydration: # History of colitis and diverticulitis. Plan/Recommendation - CT abdomen shows: Sigmoid colitis/diverticulitis. - continue antibiotics - continue IV fluid - continue clear liquid diet as patient is not tolerating regular diet - plan for outpatient colonoscopy when patient is diverticulitis resolved Thank you so much for the opportunity to consult on your patient. GI team will follow the patient. In case of any questions or concerns please feel free to reach out. Case discussed with Dr. Jasmyne Philip. The patient and caregiver team agreed to the plan. Plan discussed with: Patient CLAU DAVILA RESIDENT Aug 17, 2024 15:09
[2024-08-17 17:00] VITALS: BP 119/79; PULSE 70; RESP 18; TEMP 98.6; O2SAT 99
[2024-08-17] MEDS: KETOROLAC TROMETH 30 MG/ML 1ML VIAL IV PRN (17:42)
[2024-08-17 21:00] VITALS: BP 129/87; PULSE 80; RESP 20; TEMP 98.3; O2SAT 94
[2024-08-17] MEDS: HYDROcodone-ACET 5/325MG TAB PO ONE (22:19)
[2024-08-18] VITALS (7 sets, daily range): BP systolic 103–120; BP diastolic 64–77; PULSE 62–79; RESP 16–20; TEMP 97.6–98.9; O2SAT 95–100
[2024-08-18] MEDS: METOCLOPRAMIDE HCL 5MG/ml INJ 2ml VIAL IV ONE (05:14)
[2024-08-18] MEDS ORDERED: IOHEXOL 300 MG/ML 100ML BOTTLE IJ ONE (09:44)
[2024-08-18] MEDS ORDERED: HYDROmorphone HCL 2 MG/ML VL/or syr IV PRN (10:30)
--- NOTE | 2024-08-18 10:30 | DVHPN2 ---
Reviewed: Care Plan, H&P, Labs, Medications, Previous Orders, Radiology Changes from previous H/P or p: No Changes Eyes: No Pain, No Vision change, No Conjunctivae inflammation, No Eyelid inflammation, No Other, No Redness ENT: No Ear pain, No Ear discharge, No Nose pain, No Nose discharge, No Nose congestion, No Mouth pain, No Mouth swelling, No Throat pain, No Throat swelling, No Other Cardiovascular: No Chest Pain, No Palpitations, No Orthopnea, No Paroxysmal Noc. Dyspnea, No Edema, No Lt Headedness, No Other Respiratory: No Cough, No Dry, No Shortness of breath, No SOB with excertion, No Wheezing, No Hemoptysis, No Pleuritic Pain, No Sputum, No Other Gastrointestinal: Nausea, Vomiting, Abdominal Pain; No Diarrhea, No Constipation, No Melena, No Hematochezia, No Other Genitourinary: No Dysuria, No Frequency, No Incontinence, No Hematuria, No Retention, No Other Musculoskeletal: No other, No neck pain, No shoulder pain, No arm pain, No back pain, No hand pain, No leg pain, No foot pain Skin: No Rash, No Lesions, No Jaundice, No Bruising, No Other Objective Vitals Vital Signs Date Time Temp Pulse Resp B/P (MAP) Pulse Ox O2 Delivery O2 Flow Rate FiO2 08/18/24 08:36 98.2 79 16 111/64 (80) 97 98.2 08/17/24 20:00 Room Air* 0 21 Intake/Output Intake and Output 08/18/24 07:00 Intake Total 1850 ml Balance 1850 ml Intake Oral 1300 ml IV Total 550 ml # Voids 4 Medications Current Medications Medications Dose Ordered Sig/Jorge A Route Start Time Stop Time Status Last Admin Dose Admin Ceftriaxone Sodium 50 ml @ 100 mls/hr DAILY@09 IV 08/15/24 09:00 08/18/24 08:43 100 MLS/HR Metronidazole 100 ml @ 100 mls/hr Q8HR IV 08/15/24 14:00 08/18/24 05:14 100 MLS/HR Pantoprazole Sodium 40 mg DAILY IV 08/15/24 10:00 08/18/24 08:43 40 MG Ondansetron HCl 4 mg Q4HP PRN IV 08/15/24 05:15 08/17/24 17:40 4 MG Docusate Sodium 100 mg BIDPRN PRN PO 08/15/24 05:15 08/17/24 22:18 100 MG Nitroglycerin 0.4 mg Q5MINP PRN SL 08/15/24 05:30 Sodium Chloride 1,000 ml @ 150 mls/hr Q6H40M IV 08/15/24 13:15 08/17/24 06:29 150 MLS/HR Hydromorphone HCl 1 mg Q4HPRN PRN IV 08/18/24 10:30 UNV Laboratory Results Laboratory Tests 08/16/24 05:16 Urinalysis Test 08/15/24 07:14 Urine Color Yellow (Yellow) Urine Clarity Clear (Clear) Urine pH 6.0 (5.0-9.0) Urine Specific [place] > 1.050 (1.001-1.035) Urine Protein 1+ (Negative) H Urine Ketones Negative (Negative) Urine Blood Negative /uL (Negative) Urine Nitrite Negative (Negative) Urine Bilirubin Negative (Negative) Urine Urobilinogen Normal mg/dL (Negative) Urine Leukocyte Esterase Negative /uL (Negative) Urine RBC 3 /hpf (0 - 4) Urine Microscopic WBC 1 /HPF (0-5) Urine Squamous Epithelial Cells Few /hpf (<5) Urine Bacteria None seen /hpf (None Seen) Urine Mucus Few (None Seen) Urine Glucose Normal mg/dL (Normal) Urine Test Negative (Negative) Labs and/or images reviewed: Labs reviewed by me, Image(s) reviewed by me Assessment/Plan Assessment/Plan Acute abdominal pain Acute diverticulitis: Rocephin Flagyl pain medications ; per patient's request placed on Dilaudid 1 mg IV q.4 hours p.r.n.pain and discontinued Toradol Acute dehydration: IV fluids Nausea: Zofran discontinued as it is not working placed on compazine History of colitis and diverticulitis: GI consult by Dr. Tre Philip appreciated Patient was placed on liquid diet ruled out CBC CMP CT abdomen pelvis with IV contrast ordered Requested GI Dr. Tre Philip to review the management as the patient is still feeling pain KESHAV Jaeger at bedside Plan discussed with: Patient My Orders Orders - BILLY JAMES MD Procedure Category Date Status Time * Gi [facility] [employer] CONS 08/17/24 Transmitted 12:11 Complete Blood Count LAB 3/19/25 Logged 10:17 Comprehensive LAB 08/18/24 Logged Metabolic Panel 10:17 Ct Ab Pel With Iv Con CT 08/18/24 Logged Only 10:18 Hydromorphone PHA 08/18/24 Logged Injection (Dilaudid 10:30 * Gi [facility] [employer] CONS 08/18/24 Transmitted 10:20 Date of Service: Aug 18, 2024 Billing Provider: BILLY JAMES MD Common Visit Codes: [id number] INP/OBS CARE(HIGH) BILLY JAMES MD Aug 18, 2024 10:30
[2024-08-18 11:26] LABS: Basophils # (auto) 0 10 ^3/uL (0-0.2); Basophils % (auto) 0.8 % (0.0-2.0); Eosinophils # (auto) 0.1 10 ^3/uL (0-0.8); Eosinophils % (auto) 2.1 % (0.0-7.0); Hematocrit 39.3 % (36.0-46.0); Hemoglobin 12.5 g/dL (12.2-16.2); Lymphocytes # (auto) 1.4 10 ^3/uL (0.4-5.4); Lymphocytes % (auto) 41.4 % (10.0-50.0); Mean Corpuscular Hemoglobin 28.1 pg (28.0-32.0); Mean Corpuscular Hgb Conc. 31.9 g/dL (32.0-36.0); Mean Corpuscular Volume 88.1 fL (80.0-100.0); Monocytes # (auto) 0.4 10 ^3/uL (0-1.3); Monocytes % (auto) 12.2 % (0.0-12.0); Neutrophils # (auto) 1.4 10 ^3/uL (1.6-8.6); Neutrophils % (auto) 43.5 % (37.0-80.0); Platelet Count (auto) 192 10^3/uL (140-450); Red Blood Cells 4.46 10^6/uL (4.0-5.20); Red Cell Distribution Width 14.5 % (11.8-14.3); White Blood Cell 3.3 10^3/uL (4.4-10.8)
[2024-08-18 11:32] LABS: Alanine Aminotransferase 19 U/L (7-40); Albumin 3.7 g/dL (3.2-4.8); Alkaline Phosphatase 50 U/L (46-116); Anion Gap 6 (5-15); Aspartate Aminotransferase 23 U/L (13-40); Calcium 9.2 mg/dL (8.7-10.4); Carbon Dioxide 27 mmol/L (20-31); Glucose 91 mg/dL (74-106); Potassium 3.8 mmol/L (3.5-5.1); Sodium 140 mmol/L (136-145); Total Protein 6.8 g/dL (5.7-8.2)
[2024-08-18 11:33] LABS: Bilirubin, Total 0.7 mg/dL (0.2-1.0); Blood Urea Nitrogen < 5 mg/dL (9-23); Chloride 107 mmol/L (98-107)
[2024-08-18] MEDS: PROCHLORPERAZINE EDISYLATE 5 MG/ML 2ML VIAL IV PRN (11:42)
--- NOTE | 2024-08-18 12:12 | DVH ---
Exam: CT CT AB PEL WITH IV CON ONLY History: Acute diverticulitis rule out abscess COMPARISON: CT CT AB PEL WITH IV CON ONLY on DOS: 08/14/24 Technique: Multidetector spiral CT of the abdomen and pelvis was performed from lung bases to pubic symphysis. Intravenous contrast was administered during this examination. Portal venous imaging was obtained. Axial, coronal and sagittal multiplanar reformats were performed by the technologist on a separate workstation. Radiation Dose : Abdomen/Pelvis: CTDIvol 7.37 mGy, DLP 392.76 mGy*cm. CONTRAST: Type of contrast: Omni 300 Contrast injected: 100 mL Findings: Lung Bases: Small bilateral pleural effusions with associated basilar atelectasis and consolidation l eft greater than right. Calcified pleural plaques left lung base. Liver: The liver is normal in size. No focal lesions. Normal hepatic vascular enhancement. Gallbladder and biliary Tree: Unremarkable Spleen: Unremarkable Pancreas: The pancreas is normal in appearance without focal lesions or abnormal enhancement. Adrenal Glands: Unremarkable Kidneys: No hydronephrosis. Bladder: Unremarkable Bowel: The stomach is grossly normal in appearance. Small bowel and colon are normal in caliber and d istribution. Normal appendix is visualized in the right lower quadrant without findings of appendicit is. Sigmoid diverticulosis with resolving diverticulitis. No loculated abscess.. Ascites: Trace free fluid in the pelvis. Lymphadenopathy: No mesenteric, retroperitoneal or periportal lymphadenopathy. Abdominal wall and Mesentery: Unremarkable. Vasculature: The visualized abdominal aorta is normal in size and caliber. Abdominal and pelvic vess els demonstrate normal enhancement. Pelvic Organs: The uterus is surgically absent. Musculoskeletal: No aggressive focal bony lesions, acute fractures or dislocation. IMPRESSION: 1. Resolving sigmoid diverticulitis. No loculated abscess. Trace free fluid in the pelvis. Clinical c orrelation and continued follow-up is recommended. 2. Small bilateral pleural effusions with associated bibasilar atelectasis consolidation left greater than right. Calcified pleural plaques left lung base. Consider dedicated chest CT. Radiation optimization: All CT scans at this facility use at least one of these dose optimization avani hniques: Automated exposure control mA and/or kV adjustment per patient size (includes targeted exams where dose is matched to clinical indication) or iterative reconstruction. HS:Y
[2024-08-18] MEDS ORDERED: CLINIMIX PER PHARMACY 0 ML IV SCH (13:00)
--- NOTE | 2024-08-18 13:04 | DVHPN2 ---
Progress Note - Dictate Date Seen: Aug 18, 2024 Medical Necessity Reason Pt with a Central, PICC or Fol: No Subjective Patient seen at bedside resting comfortably Patient states she has not had a bowel movement for six days She continues to complain of lower abdominal pain which is not getting better Patient wanted additional antibiotics vital signs Vital Sign Date Time Temp Pulse Resp B/P (MAP) Pulse Ox O2 Delivery O2 Flow Rate FiO2 08/18/24 12:37 98.9 62 16 120/77 (91) 100 98.9 08/18/24 08:00 Room Air* 0 21 Total Intake and Output 08/17/24 08/17/24 08/18/24 14:59 22:59 06:59 Intake Total 250 ml 1100 ml 500 ml Balance 250 ml 1100 ml 500 ml medications Current Medications Medications Dose Ordered Sig/Jorge A Route Start Time Stop Time Status Last Admin Dose Admin Ceftriaxone Sodium 50 ml @ 100 mls/hr DAILY@09 IV 08/15/24 09:00 08/18/24 08:43 100 MLS/HR Metronidazole 100 ml @ 100 mls/hr Q8HR IV 08/15/24 14:00 08/18/24 05:14 100 MLS/HR Pantoprazole Sodium 40 mg DAILY IV 08/15/24 10:00 08/18/24 08:43 40 MG Docusate Sodium 100 mg BIDPRN PRN PO 08/15/24 05:15 08/18/24 11:42 100 MG Nitroglycerin 0.4 mg Q5MINP PRN SL 08/15/24 05:30 Sodium Chloride 1,000 ml @ 150 mls/hr Q6H40M IV 08/15/24 13:15 08/17/24 06:29 150 MLS/HR Hydromorphone HCl 1 mg Q4HPRN PRN IV 08/18/24 10:30 Prochlorperazine Edisylate 5 mg Q4HPRN PRN IV 08/18/24 10:30 08/18/24 11:42 5 MG Levofloxacin/ Dextrose 100 ml @ 100 mls/hr DAILY IV 08/19/24 10:00 UNV Amino Acids 0 ml @ 0 mls/hr PER PHARMACY IV 08/18/24 13:00 UNV Docusate Sodium 200 mg BID PO 08/18/24 22:00 UNV Levofloxacin/ Dextrose 100 ml @ 100 mls/hr DAILY IV 08/19/24 10:00 UNV objective General Appearance: Alert, Oriented X3, Cooperative, No acute distress HEENT: Atraumatic, PERRLA, EOMI, Mucous membr. moist/pink Respiratory: Clear to auscultation, Normal air movement Cardiovascular: Regular rate, Normal S1, Normal S2, No murmurs Abdominal: Normal bowel sounds, Soft, No hepatospenomegaly, No masses, Other (Reports tenderness); minimal left lower quadrant Extremities: No clubbing, No cyanosis, No edema, Normal pulses, No tenderness/swelling Skin: No rashes, No breakdown, No significant lesion Neuro: Normal gait, Normal speech, Strength at 5/5 X4 ext, Normal tone, Sensation intact, Cranial nerves 3-12 NL, Reflexes 2+ Psych/Mental Status: Mental status NL, Mood NL laboratory and microbiology Laboratory Tests 08/18/24 10:53 Test 08/18/24 10:53 Range/Units Serum Glucose 91 74-106 mg/dL Repeat CT Scan Abd/ Pelvis IMPRESSION: 1. Resolving sigmoid diverticulitis. No loculated abscess. Trace free fluid in the pelvis. Clinical correlation and continued follow-up is recommended. 2. Small bilateral pleural effusions with associated bibasilar atelectasis consolidation left greater than right. Calcified pleural plaques left lung base. Consider dedicated chest CT. Problems(with codes): (1) Constipation (2) Acute abdominal pain (3) Diverticulitis Prognosis Assessment plan Patient appears to have resolving diverticulitis based on repeat CT There was no abscess or perforation or free air Patient has trace pelvic fluid and also trace bilateral pleural effusions possibly reactive Add Levaquin 500 mg IV daily to her antibiotic regimen Patient will stay on a clear liquid diet at this time until her abdominal pain improves I increase the Colace to 200 mg p.o. twice a day I have started her on Clinimix 1 L per 24 hours Bentyl 20 mg p.o. twice a day as needed for pain as needed I will follow up patient with you Patient has been advised outpatient follow up with me in 4-6 weeks for elective colonoscopy Her last colonoscopy was about four five years ago in [place] and patient does not recall results Plan discussed with: Patient, Other (Nurse) PRIMO NORRIS MD Aug 18, 2024 13:04
[2024-08-18] MEDS: DICYCLOMINE HCL 10 MG CAP PO ONE (13:52)
[2024-08-18] MEDS ORDERED: DEXTROSE (50%) 50ML SYRG IV SCH (14:15)
[2024-08-18 14:29] LABS: Magnesium 1.8 mg/dL (1.6-2.6)
[2024-08-18 14:31] LABS: Phosphorus 3.1 mg/dL (2.4-5.1)
[2024-08-18] MEDS: levoFLOXacin 500MG 100 ML IV ONE (15:42)
[2024-08-18] MEDS: InsuLIN REG 1unit/0.01ml Soln (100units/ml) SC SCH (16:37)
[2024-08-18] MEDS: ACCU-CHEK COMFORT CURVE STRIP VI SCH (16:38)
[2024-08-18] MEDS: DOCUSATE SOD 100 MG CAP PO SCH (21:40)
[2024-08-18] MEDS: AMINO ACID INFUSION IN D5W 1,000 ML IV SCH (22:41)
[2024-08-18] MEDS: TEMAZEPAM 15 MG CAP PO ONE (23:55)
[2024-08-19 05:00] VITALS: BP 103/61; PULSE 85; RESP 16; TEMP 98.3; O2SAT 97
[2024-08-19 06:59] LABS: Alanine Aminotransferase 15 U/L (7-40); Albumin 3.4 g/dL (3.2-4.8); Anion Gap 9 (5-15); Aspartate Aminotransferase 20 U/L (13-40); Bilirubin, Total 0.7 mg/dL (0.2-1.0); Calcium 9.5 mg/dL (8.7-10.4); Carbon Dioxide 25 mmol/L (20-31); Chloride 106 mmol/L (98-107); Glucose 87 mg/dL (74-106); Magnesium 1.7 mg/dL (1.6-2.6); Phosphorus 3.5 mg/dL (2.4-5.1); Potassium 3.7 mmol/L (3.5-5.1); Sodium 140 mmol/L (136-145); Total Protein 6.2 g/dL (5.7-8.2)
[2024-08-19 07:05] LABS: Alkaline Phosphatase 40 U/L (46-116); BUN/Creatinine Ratio 7.1 (10.0-20.0); Blood Urea Nitrogen < 5 mg/dL (9-23)
[2024-08-19 08:10] VITALS: PULSE 69; RESP 16; O2SAT 98
[2024-08-19 09:00] VITALS: BP 105/62; PULSE 69; RESP 16; TEMP 98.6; O2SAT 98
--- NOTE | 2024-08-19 09:46 | ECG ---
[facility] Test Date: 2024-08-18 Test Time: 22:29:52 Pat Name: ADITHYA OBRIEN Department: Room: 0286 B Gender: F [employer] Rep[employer]r: JOSUÉ : 1975 Requested By: SOL OLIVARES Order Number: [id number] Reading MD: Ruben Ch Measurements Intervals [place] Rate: 71 P: 25 MT: 137 QRS: -29 QRSD: 98 T: -7 QT: 393 QTc: 428 Interpretive Statements Sinus rhythm Borderline left axis deviation Probable anterior infarct, age indeterminate Electronically Signed On 08-21-2024 17:11:06 PDT by Ruben Ch Please click the below link to view image of tracing.
[2024-08-19] MEDS ORDERED: levoFLOXacin 500MG 100 ML IV SCH (10:00)
[2024-08-19] MEDS: levoFLOXacin 500MG 100 ML IV SCH (10:22)
--- NOTE | 2024-08-19 10:47 | DVHPN2 ---
Progress Note Date Seen: Aug 19, 2024 Resident Creating Document: VALDEMAR REINA RESIDENT Medical Necessity Reason Pt with a Central, PICC or Fol: No Subjective Review of Systems 49-year-old female who came to ER for abdominal pain. Patient has been complaining of lower abdominal pain for the past 3 days, intermittent, stabbing, associated bouts of nausea and vomiting. Denies any diarrhea. Patient seen and examined at bedside, patient reports feeling great, no nausea no vomiting. Last bowel movement this morning was normal without any blood. Reports having good appetite. Objective vital signs Vital Sign Date Time Temp Pulse Resp B/P (MAP) Pulse Ox O2 Delivery O2 Flow Rate FiO2 08/19/24 09:00 98.6 69 16 105/62 (76) 98 98.6 08/19/24 08:10 Room Air* 0 21 Total Intake and Output 08/18/24 08/18/24 08/19/24 15:00 23:00 07:00 Intake Total 390 ml 1000 ml 400 ml Balance 390 ml 1000 ml 400 ml medications Current Medications Medications Dose Ordered Sig/Jorge A Route Start Time Stop Time Status Last Admin Dose Admin Ceftriaxone Sodium 50 ml @ 100 mls/hr DAILY@09 IV 08/15/24 09:00 08/19/24 09:09 100 MLS/HR Metronidazole 100 ml @ 100 mls/hr Q8HR IV 08/15/24 14:00 08/19/24 05:55 100 MLS/HR Pantoprazole Sodium 40 mg DAILY IV 08/15/24 10:00 08/19/24 10:22 40 MG Nitroglycerin 0.4 mg Q5MINP PRN SL 08/15/24 05:30 Sodium Chloride 1,000 ml @ 150 mls/hr Q6H40M IV 08/15/24 13:15 08/17/24 06:29 150 MLS/HR Hydromorphone HCl 1 mg Q4HPRN PRN IV 08/18/24 10:30 Prochlorperazine Edisylate 5 mg Q4HPRN PRN IV 08/18/24 10:30 08/18/24 22:21 5 MG Amino Acids 0 ml @ 0 mls/hr PER PHARMACY IV 08/18/24 13:00 Docusate Sodium 200 mg BID PO 08/18/24 22:00 08/19/24 10:22 200 MG Levofloxacin/ Dextrose 100 ml @ 100 mls/hr DAILY IV 08/19/24 10:00 08/19/24 10:22 100 MLS/HR Diagnostic Test (Pha) 1 strip Q6HR 08/18/24 18:00 08/19/24 05:59 1 STRIP Insulin Human Regular FOLLOW SLIDING SCALE Q6HR SC 08/18/24 18:00 Dextrose 50 ml UD IV 08/18/24 14:15 Amino Acids 1,000 ml @ 41 mls/hr DAILY@2200 IV 08/18/24 22:00 08/18/24 22:41 41 MLS/HR Examination General Appearance: Cooperative. Well developed. Well nourished. NAD Head Exam: Normal inspection Neck Exam: Normal inspection. Non-tender. Normal alignment Pulmonary/Respiratory: Chest non-tender. Clear bilateral breath sounds, no crackles, no wheezing. Cardiovascular/Chest: Regular rate and rhythm. No murmurs. No JVD. Peripheral Pulses: 2+ Radial (R). 2+ Radial (L). 2+ Pedal (R). 2+ Pedal (L) Abdominal Exam: Normal bowel sounds. Soft. normal abdomen, no visible veins, Nontender. No hepatospenomegaly. No masses Ankle Exam: Negative ankle edema Lower extremities: Negative lower extremity edema Neuro/Mental Status: A&O x4. Coherent. Thoughts/Psych: Normal thought pattern. Appropriate mood and affect. Good judgement and insight Skin Exam: Normal inspection. Normal color. Warm. Dry laboratory and microbiology Laboratory Tests 08/19/24 05:21 08/18/24 10:53 Test 08/19/24 05:21 Range/Units Serum Glucose 87 74-106 mg/dL Problem List/Assessment/Plan Problem List/Assessment/Plan Diverticulitis Acute abdominal pain Constipation Plan: Based on repeat CT abdomen pelvis, patient appears to be having a resolving diverticulitis No abscess, perforation or free air Patient has trace pelvic fluid, trace bilateral pleural effusions likely reactive Added Levaquin 500 mg IV daily Continue clear liquid diet Increased Colace 200 mg p.o. b.i.d. Started on Clinimix Bentyl 20 mg p.o. b.i.d. PRN for pain Follow up with GI in the outpatient clinic in 4-6 weeks for possible elective colonoscopy, last colonoscopy was 4-5 years ago patient unable to remember the results Thank you so much for the opportunity to consult on your patient. GI team will follow the patient. In case of any questions or concerns please feel free to reach out. Plan discussed with Dr. Philip Plan discussed with: Patient, Other (RN) VALDEMAR REINA RESIDENT Aug 19, 2024 10:47
[2024-08-19] MEDS ORDERED: METR-344 PO (11:48)
[2024-08-19] MEDS ORDERED: LEVO500T91 PO (11:48)
[2024-08-19] MEDS ORDERED: HYDR-4902 PO (11:48)
[2024-08-19] MEDS ORDERED: DICY10CA PO (11:48)
--- NOTE | 2024-08-19 11:51 | DVHPN2 ---
Reviewed: Care Plan, H&P, Labs, Medications, Previous Orders, Radiology Changes from previous H/P or p: No Changes Eyes: No Pain, No Vision change, No Conjunctivae inflammation, No Eyelid inflammation, No Other, No Redness ENT: No Ear pain, No Ear discharge, No Nose pain, No Nose discharge, No Nose congestion, No Mouth pain, No Mouth swelling, No Throat pain, No Throat swelling, No Other Cardiovascular: No Chest Pain, No Palpitations, No Orthopnea, No Paroxysmal Noc. Dyspnea, No Edema, No Lt Headedness, No Other Respiratory: No Cough, No Dry, No Shortness of breath, No SOB with excertion, No Wheezing, No Hemoptysis, No Pleuritic Pain, No Sputum, No Other Gastrointestinal: Nausea, Vomiting, Abdominal Pain; No Diarrhea, No Constipation, No Melena, No Hematochezia, No Other Genitourinary: No Dysuria, No Frequency, No Incontinence, No Hematuria, No Retention, No Other Musculoskeletal: No other, No neck pain, No shoulder pain, No arm pain, No back pain, No hand pain, No leg pain, No foot pain Skin: No Rash, No Lesions, No Jaundice, No Bruising, No Other Objective Vitals Vital Signs Date Time Temp Pulse Resp B/P (MAP) Pulse Ox O2 Delivery O2 Flow Rate FiO2 08/19/24 09:00 98.6 69 16 105/62 (76) 98 98.6 08/19/24 08:10 Room Air* 0 21 Intake/Output Intake and Output 08/19/24 07:00 Intake Total 1790 ml Balance 1790 ml Intake Oral 1440 ml IV Total 350 ml # Voids 4 # Bowel Movements 1 Medications Current Medications Medications Dose Ordered Sig/Jorge A Route Start Time Stop Time Status Last Admin Dose Admin Ceftriaxone Sodium 50 ml @ 100 mls/hr DAILY@09 IV 08/15/24 09:00 08/19/24 09:09 100 MLS/HR Metronidazole 100 ml @ 100 mls/hr Q8HR IV 08/15/24 14:00 08/19/24 05:55 100 MLS/HR Pantoprazole Sodium 40 mg DAILY IV 08/15/24 10:00 08/19/24 10:22 40 MG Nitroglycerin 0.4 mg Q5MINP PRN SL 08/15/24 05:30 Sodium Chloride 1,000 ml @ 150 mls/hr Q6H40M IV 08/15/24 13:15 08/17/24 06:29 150 MLS/HR Hydromorphone HCl 1 mg Q4HPRN PRN IV 08/18/24 10:30 Prochlorperazine Edisylate 5 mg Q4HPRN PRN IV 08/18/24 10:30 08/18/24 22:21 5 MG Amino Acids 0 ml @ 0 mls/hr PER PHARMACY IV 08/18/24 13:00 Docusate Sodium 200 mg BID PO 08/18/24 22:00 08/19/24 10:22 200 MG Levofloxacin/ Dextrose 100 ml @ 100 mls/hr DAILY IV 08/19/24 10:00 08/19/24 10:22 100 MLS/HR Diagnostic Test (Pha) 1 strip Q6HR 08/18/24 18:00 08/19/24 05:59 1 STRIP Insulin Human Regular FOLLOW SLIDING SCALE Q6HR SC 08/18/24 18:00 Dextrose 50 ml UD IV 08/18/24 14:15 Amino Acids 1,000 ml @ 41 mls/hr DAILY@2200 IV 08/18/24 22:00 08/18/24 22:41 41 MLS/HR Laboratory Results Laboratory Tests 08/18/24 10:53 08/19/24 05:21 Chemistry Test 08/19/24 05:21 Albumin 3.4 g/dL (3.2-4.8) Calcium Level 9.5 mg/dL (8.7-10.4) Magnesium Level 1.7 mg/dL (1.6-2.6) Phosphorus Level 3.5 mg/dL (2.4-5.1) Total Protein 6.2 g/dL (5.7-8.2) LFT Test 08/19/24 05:21 Alanine Aminotransferase (ALT) 15 U/L (7-40) Alkaline Phosphatase 40 U/L (46-116) L Aspartate Amino Transferase (AST) 20 U/L (13-40) Total Bilirubin 0.7 mg/dL (0.2-1.0) Urinalysis Test 08/15/24 07:14 Urine Color Yellow (Yellow) Urine Clarity Clear (Clear) Urine pH 6.0 (5.0-9.0) Urine Specific [place] > 1.050 (1.001-1.035) Urine Protein 1+ (Negative) H Urine Ketones Negative (Negative) Urine Blood Negative /uL (Negative) Urine Nitrite Negative (Negative) Urine Bilirubin Negative (Negative) Urine Urobilinogen Normal mg/dL (Negative) Urine Leukocyte Esterase Negative /uL (Negative) Urine RBC 3 /hpf (0 - 4) Urine Microscopic WBC 1 /HPF (0-5) Urine Squamous Epithelial Cells Few /hpf (<5) Urine Bacteria None seen /hpf (None Seen) Urine Mucus Few (None Seen) Urine Glucose Normal mg/dL (Normal) Urine Test Negative (Negative) Labs and/or images reviewed: Labs reviewed by me, Image(s) reviewed by me Assessment/Plan Assessment/Plan Acute abdominal pain Acute diverticulitis: Rocephin Flagyl pain medications ; per patient's request placed on Dilaudid 1 mg IV q.4 hours p.r.n.pain and discontinued Toradol Acute dehydration: IV fluids Nausea: Zofran discontinued as it is not working placed on compazine History of colitis and diverticulitis: GI consult by Dr. Tre Philip appreciated Patient was placed on liquid diet ruled out Repeat CT abdomen pelvis with IV contrast shows resolving acute diverticulitis with no abscess formation Consult by GI Dr. Tre Philip appreciated placed on Bentyl and Colace Possible mild bilateral pneumonia placed on Levaquin KESHAV Young bedside Patient feels much better without any pain or fever and sitting up in the bed and requesting to be discharged today Plan discussed with: Patient Date of Service: Aug 19, 2024 Billing Provider: BILLY JAMES MD Common Visit Codes: [id number] INP/OBS CARE(HIGH) BILLY JAMES MD Aug 19, 2024 11:51
--- NOTE | 2024-08-19 11:55 | DVHDS2 ---
Discharge Summary Date of Admission Aug 15, 2024 at 05:18 Date of Discharge: Aug 19, 2024 Admitting Diagnosis Left Lower quadrant abdominal pain Wounds: None Labs/Diagnostic Data: Laboratory Results Test 08/19/24 05:54 08/19/24 05:21 08/18/24 10:53 08/15/24 07:14 POC Glucose 97 mg/dl (70-106) Sodium Level 140 mmol/L (136-145) Potassium Level 3.7 mmol/L (3.5-5.1) Chloride Level 106 mmol/L (98-107) Carbon Dioxide Level 25 mmol/L (20-31) Anion Gap 9 (5-15) Blood Urea Nitrogen < 5 mg/dL (9-23) Creatinine 0.70 mg/dL (0.550-1.02) Glomerular Filtration Rate Calc 107 mL/min (>90) BUN/Creatinine Ratio 7.1 (10.0-20.0) Serum Glucose 87 mg/dL (74-106) Calcium Level 9.5 mg/dL (8.7-10.4) Phosphorus Level 3.5 mg/dL (2.4-5.1) Magnesium Level 1.7 mg/dL (1.6-2.6) Total Bilirubin 0.7 mg/dL (0.2-1.0) Aspartate Amino Transferase (AST) 20 U/L (13-40) Alanine Aminotransferase (ALT) 15 U/L (7-40) Alkaline Phosphatase 40 U/L (46-116) Total Protein 6.2 g/dL (5.7-8.2) Albumin 3.4 g/dL (3.2-4.8) White Blood Count 3.3 10^3/uL (4.4-10.8) Red Blood Count 4.46 10^6/uL (4.0-5.20) Hemoglobin 12.5 g/dL (12.2-16.2) Hematocrit 39.3 % (36.0-46.0) Mean Corpuscular Volume 88.1 fL (80.0-100.0) Mean Corpuscular Hemoglobin 28.1 pg (28.0-32.0) Mean Corpuscular Hemoglobin Concent 31.9 g/dL (32.0-36.0) Red Cell Distribution Width 14.5 % (11.8-14.3) Platelet Count 192 10^3/uL (140-450) Mean Platelet Volume 9.5 fL (6.9-10.8) Neutrophils (%) (Auto) 43.5 % (37.0-80.0) Lymphocytes (%) (Auto) 41.4 % (10.0-50.0) Monocytes (%) (Auto) 12.2 % (0.0-12.0) Eosinophils (%) (Auto) 2.1 % (0.0-7.0) Basophils (%) (Auto) 0.8 % (0.0-2.0) Neutrophils # (Auto) 1.4 10 ^3/uL (1.6-8.6) Lymphocytes # (Auto) 1.4 10 ^3/uL (0.4-5.4) Monocytes # (Auto) 0.4 10 ^3/uL (0-1.3) Eosinophils # (Auto) 0.1 10 ^3/uL (0-0.8) Basophils # (Auto) 0 10 ^3/uL (0-0.2) Nucleated Red Blood Cells 0.0 % Triglycerides Level 36 mg/dL (< 150) Urine Color Yellow (Yellow) Urine Clarity Clear (Clear) Urine pH 6.0 (5.0-9.0) Urine Specific [place] > 1.050 (1.001-1.035) Urine Protein 1+ (Negative) Urine Ketones Negative (Negative) Urine Blood Negative /uL (Negative) Urine Nitrite Negative (Negative) Urine Bilirubin Negative (Negative) Urine Urobilinogen Normal mg/dL (Negative) Urine Leukocyte Esterase Negative /uL (Negative) Urine RBC 3 /hpf (0 - 4) Urine Microscopic WBC 1 /HPF (0-5) Urine Squamous Epithelial Cells Few /hpf (<5) Urine Bacteria None seen /hpf (None Seen) Urine Mucus Few (None Seen) Urine Glucose Normal mg/dL (Normal) Urine Test Negative (Negative) Test 08/14/24 22:06 Lipase 31 U/L (12-53) Other Laboratory Tests 08/19/24 05:21 08/18/24 10:53 Brief Hx & Hospital Course: 49-year-old female admitted for acute left lower quadrant abdominal pain test was negative patient has had acute diverticulitis treated with Rocephin and Flagyl and pain medication Dilaudid IV fluids for dehydration she also had nausea treated with the Compazine. Patient was started on liquid diet and advanced. Dr. Philip was consulted and she placed on Colace and Bentyl and also Levaquin for possible bilateral pneumonia. At the time of discharge patient is alert awake oriented x3 having soft diet afebrile no pain and wants to be discharged today itself. KESHAV Young at bedside Discharged home on Levaquin Flagyl Bentyl and [place] Consults/Reason for consult GI Dr. Tre Philip Operations or Procedures CT abdomen pelvis without contrast Condition at Discharge: Fair Final Diagnosis/Problems List Acute abdominal pain Acute diverticulitis: Rocephin Flagyl pain medications ; per patient's request placed on Dilaudid 1 mg IV q.4 hours p.r.n.pain and discontinued Toradol Acute dehydration: IV fluids Nausea: Zofran discontinued as it is not working placed on compazine History of colitis and diverticulitis: GI consult by Dr. Tre Philip appreciated Patient was placed on liquid diet ruled out Repeat CT abdomen pelvis with IV contrast shows resolving acute diverticulitis with no abscess formation Consult by GI Dr. Tre Philip appreciated placed on Bentyl and Colace Possible mild bilateral pneumonia placed on Levaquin Discharge Disposition: Home Discharge Instruct/Medications Diet: Regular Activity: Light activity Follow Up/Referral: Follow up with your primary Dr Grant diet as tolerated Medications: Levaquin Flagyl Bentyl [place] Transmitted to pharmacy 39 (Time taken for discharge summary 39 minutes) Discharge Statement: "Patient was advised to return to the ER or call 911 if any headaches, dizziness, shortness of breath, chest pain, abdominal pain, bleeding, fevers, or worsening of medical condition. Patient was counseled about treatment plan, medications, possible side effects, patientverbalized understanding. All questions were answered to the best of my ability. This discharge took greater then 30 minutes in planning, reviewing documentation, counseling the patient, and discussing with other team members." ASSESSMENT ASSESSMENT Hospital Course Improved Assessment Acute abdominal pain Acute diverticulitis: Rocephin Flagyl pain medications ; per patient's request placed on Dilaudid 1 mg IV q.4 hours p.r.n.pain and discontinued Toradol Acute dehydration: IV fluids Nausea: Zofran discontinued as it is not working placed on compazine History of colitis and diverticulitis: GI consult by Dr. Tre Philip appreciated Patient was placed on liquid diet ruled out Repeat CT abdomen pelvis with IV contrast shows resolving acute diverticulitis with no abscess formation Consult by GI Dr. Tre Philip appreciated placed on Bentyl and Colace Possible mild bilateral pneumonia placed on Levaquin Date of Service: Aug 19, 2024 Billing Provider: BILLY JAMES MD Common Visit Codes: [id number] DISCH DAY >30min BILLY JAMES MD Aug 19, 2024 11:55
[2024-08-19 12:09] VITALS: BP 105/62; PULSE 69; RESP 19; TEMP 98.6; O2SAT 98
[2024-08-19] MEDS ORDERED: AMINO ACID INFUSION IN D10W 2,000 ML IV SCH (22:00)
== END 2024-08-19 12:50 | disposition home or self-care (01) | DRG 391 ==
LOC: ER 21:27 → OVERFLOW 08-15 05:18 → WEST WING 08-15 06:30
PROVIDERS: ADMIT Family Medicine; ATTEND Family Medicine
DX: K57.32 Diverticulitis of large intestine without perforation or abscess without bleeding (principal); J15.69 Pneumonia due to other Gram-negative bacteria; N17.0 Acute kidney failure with tubular necrosis; E86.0 Dehydration; K59.00 Constipation, unspecified; Z90.710 Acquired absence of both cervix and uterus; Z79.899 Other long term (current) drug therapy
CPT/HCPCS: 36415; 74177; 80053; 81001; 81025; 82962; 83690; 83735; 84100; 84478; 85025; 93005; 96361; 96365; 96367; 96375; 96376; G0378; J1885; J1956; J2405; J2470; J3490

== ENCOUNTER 2025-02-11 11:07 | Day surgery (SDC) | payer OTHER ==
[2025-02-07 09:09] LABS: Hematocrit 40.1 % (36.0-46.0); Hemoglobin 13.3 g/dL (12.2-16.2); Mean Corpuscular Hemoglobin 28.8 pg (28.0-32.0); Mean Corpuscular Volume 87.2 fL (80.0-100.0); Nucleated Red Blood Cells % 0.1 %
[2025-02-07 09:25] LABS: Alanine Aminotransferase 20 U/L (7-40); Albumin 3.9 g/dL (3.2-4.8); Alkaline Phosphatase 68 U/L (46-116); Anion Gap 8 (5-15); BUN/Creatinine Ratio 8.0 (10.0-20.0); Blood Urea Nitrogen 7 mg/dL (9-23); Calcium 9.2 mg/dL (8.7-10.4); Carbon Dioxide 26 mmol/L (20-31); Chloride 107 mmol/L (98-107); Glucose 80 mg/dL (74-106); INR 1.02 (0.9-1.15); Partial Thromboplastin Time 30.7 SEC (24.5-34.5); Potassium 4.0 mmol/L (3.5-5.1); Prothrombin Time 10.8 sec (9.3-11.8); Sodium 141 mmol/L (136-145); Total Protein 7.2 g/dL (5.7-8.2)
[2025-02-07 09:26] LABS: Bilirubin, Total 0.9 mg/dL (0.2-1.0)
[2025-02-07 09:43] LABS: Urine Protein, UAD Negative (Negative)
[~2025-02-11] VITALS: Ht 165.1 cm; Wt 73.9 kg
[~2025-02-11 11:07] MED LIST: BUDE1AER4 IN; CHOL20007 PO; CYAN1TAB14 PO; DEXL60CA7 PO; MISC500C8 PO; MONT4CHW74 PO; MORI500C PO
[2025-02-11 14:13] VITALS: PULSE 67; RESP 18; O2SAT 100
--- NOTE | 2025-02-11 14:15 | DVHOP2 ---
Operative Report DATE OF OPERATION: 02/11/25 PROCEDURE: Colonoscopy with cold biopsy polypectomy. PREOPERATIVE INDICATION: The patient is a 49 -year-old female undergoing colonoscopy for surveillance with possible history of colon polyps and diverticulosis POSTOPERATIVE DIAGNOSES: 1. 2 mm benign-appearing hyperplastic appearing sigmoid polyp was seen and removed by cold biopsy forceps 2. Moderate scattered diverticular disease more prominent in the sigmoid 3. Trace internal hemorrhoids otherwise normal examination up to the cecum PROCEDURE PERFORMED BY: Primo Philip M.D. SCOPE: Olympus videocolonoscope. ASA CLASS: 3 PREOPERATIVE MEDICATIONS: Mac erin, Reynaldo Dan PROCEDURE IN DETAIL: After obtaining an informed consent, the patient was placed on left lateral decubitus position. She was then sedated with the above medications. A rectal examination was performed that was normal. The colonoscope was then passed through the anus into the rectosigmoid and through the descending, transverse, and ascending colon up to the cecum with visualization of the appendiceal orifice, base of the cecum and the ileocecal valve. The colonoscope was then withdrawn. No masses or colitis was noted. Patient had scattered diverticular disease more prominent in the sigmoid. In the sigmoid colon there was a 1-2 mm benign-appearing hyperplastic type polyp that was seen and removed by cold biopsy forceps On retroflexion and straight on view the patient had trace internal hemorrhoids. The patient tolerated the procedure well without difficulty. WITHDRAWAL TIME: 6 minutes QUALITY OF THE PREP: [place] Bowel Prep score: 9. COMPLICATIONS : None SPECIMENS: Sigmoid polyp DISPOSITION: Stable D/C to home PLAN: 1. Repeat colonoscopy base on biopsy result likely in 7-10 years 2. Resume GI soft diet advance as tolerated 3. Increase fluid and fiber intake 4. Outpatient follow up with me in 4-6 weeks to review results and discuss further management PRIMO PHILIP MD Feb 11, 2025 14:15
[2025-02-11 14:58] VITALS: BP 112/62; PULSE 66; RESP 20; O2SAT 100
== END 2025-02-11 15:13 | disposition home or self-care (01) ==
LOC: SUR 11:07
PROVIDERS: ATTEND Internal Medicine Gastroenterology
DX: K59.00 Constipation, unspecified (principal); K57.30 Diverticulosis of large intestine without perforation or abscess without bleeding; K64.8 Other hemorrhoids; D12.5 Benign neoplasm of sigmoid colon; J45.909 Unspecified asthma, uncomplicated; Z90.710 Acquired absence of both cervix and uterus; Z98.890 Other specified postprocedural states
CPT/HCPCS: 36415; 45380; 80053; 81001; 85025; 85610; 85730; J7030

== ENCOUNTER 2025-03-22 15:30 | Emergency (ER) | payer OTHER ==
[~2025-03-22] VITALS: Ht 165.1 cm; Wt 75.0 kg
--- NOTE | 2025-03-22 15:43 | ED.PDOC ---
History of Present Illness HPI Comments 49 y/o F, presents to the ED for CC of high blood pressure. Patient states, she began to experience sudden bilateral arm tingling with associated lightheadedness while at work. patient reports, symptoms arise when her blood pressure is high. Patient denies nausea, vomiting, dizziness, or photophobia. No other symptoms or modifying factors are present at this time. Chief Complaint: High Blood Pressure Time Seen by MD: 15:30 Primary Care Provider: n/a Reviewed Notes: Nurses Notes, Medications, Allergies Allergies: Coded Allergies: NO KNOWN ALLERGIES (Unverified , 08/14/24) Home Meds Reported Medications Dexlansoprazole (Dexlansoprazole) 60 Mg Cap, 60 MG PO, CAP 02/07/25 Cyanocobalamin (B12) 1,000 Mcg Tab, 1000 MCG PO, TAB 02/07/25 Cholecalciferol (VITAMIN D3) 2,000 Unit Tab, 1 TAB PO DAILY, #90 TAB 3 Refills 02/07/25 Beet Root (Beta Vulgaris Rubra (Beet Root) 500 Mg Cap, 500 MG PO, CAP 02/07/25 Moringa Oleifera (Moringa) 500 Mg Cap, 500 MG PO, CAP 02/07/25 Montelukast Sodium (Singulair) 4 Mg Chw, 1 TAB PO DAILY, #30 TAB 3 Refills 02/07/25 Budesonide-Formoterol Fumarate (Budesonide/Formoterol Fum 160-4.5 Mcg/Act) 1 Aer Aer, 1 AER IN, AER 02/07/25 Information Source: Patient Mode of Arrival: Ambulatory Severity: Moderate Timing: Minutes Duration: Since onset Prehospital treatment: None Past Medical History PAST MEDICAL HISTORY: Denies Surgical History: Hysterectomy CNS History: Denies all CNS Hx Family History Family History: Reviewed,noncontributory to illness Social History Smoker: Non-Smoker Alcohol: Denies ETOH Use Drugs: Denies Drug Use Lives In: Home Constitutional: denies: chills, diaphoresis, fatigue, fever, malaise, sweats, weakness, others EENTM: denies: blurred vision, double vision, ear bleeding, ear discharge, ear drainage, ear pain, ear ringing, eye pain, eye redness, hearing loss, mouth pain, mouth swelling, nasal discharge, nose bleeding, nose congestion, nose pain, photophobia, tearing, throat pain, throat swelling, voice changes, others Respiratory: denies: cough, hemoptysis, orthopnea, SOB at rest, shortness of breath, SOB with excertion, stridor, wheezing, others Cardiovascular: reports: lightheadedness; denies: chest pain, dizzy spells, diaphoresis, Dyspnea on exertion, edema, irregular heart beat, left arm pain, palpitations, PND, syncope, others Gastrointestinal: denies: abdomen distended, abdominal pain, blood streaked bowels, constipated, diarrhea, dysphagia, difficulty swallowing, hematemesis, melena, nausea, poor appetite, poor fluid intake, rectal bleeding, rectal pain, vomiting, others Genitourinary: denies: abnormal vagina bleeding, burning, dyspareunia, dysuria, flank pain, frequency, hematuria, incontinence, pain, , vagina discharge, urgency, others Neurological: reports: tingling; denies: dizziness, fainting, headache, left sided numbness, left sided weakness, numbness, paresthesia, pre-existing deficit, right sided numbness, right sided weakness, seizure, speech problems, tremors, weakness, others Musculoskeletal: denies: back pain, gout, joint pain, joint swelling, muscle pain, muscle stiffness, neck pain, others Integumetry: denies: bruises, change in color, change in hair/nails, dryness, laceration, lesions, lumps, rash, wounds, others Allergic/Immunocompromised: denies: Difficulty Healing, Frequent Infections, Hives, Itching, others Hematologic/Lymphatic: denies: anemia, blood clots, easy bleeding, easy bruising, swollen glands, others Endocrine: denies: excessive hunger, excessive sweating, excessive thirst, excessive urination, flushing, intolerance to cold, intolerance to heat, unexplained weight gain, unexplained weight loss, others Psychiatric: denies: anxiety, bipolar disorder, depression, hopeless, panic disorder, schizophrenia, sleepless, suicidal, others All Other Systems: Reviewed and Negative Physical Exam General Appearance: No Apparent Distress HEENT: Normal ENT Inspection, Pharynx Normal, TMs Normal Neck: Full Range of Motion, Non-Tender, Normal, Normal Inspection Respiratory: Chest Non-Tender, Lungs Clear, No Accessory Muscle Use, No Respiratory Distress, Normal Breath Sounds Cardiovascular: No Edema, No JVD, No Murmur, No Gallop, Normal Peripheral Pulses, Regular Rate/Rhythm Breast Exam: Deferred Gastrointestinal: No Organomegaly, Non Tender, No Pulsatile Mass, Normal Bowel Sounds, Soft Genitalia: Deferred Pelvic: Deferred Rectal: Deferred Extremities: No calf tenderness, Normal capillary refill, Normal inspection, Normal range of motion, Non-tender, No pedal edema Musculoskeletal : Apperance: Normal 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 Was a procedure done?: No EKG EKG : Pulse Rate (adult): 88 [place]: Normal Cardiac Rhythm: NSR Block: None Hypertrophy: LAE ST: Normal Differential Dx Considerations may include: HYPERTENSIVE URGENCY, HYPERTENSIVE CRISIS X-Ray, Labs, Meds, VS Vital Signs Date Time Temp Pulse Resp B/P (MAP) Pulse Ox O2 Delivery O2 Flow Rate FiO2 03/22/25 15:56 Room Air* 0 21 03/22/25 15:44 88 03/22/25 15:39 88 03/22/25 15:34 98.2 112 20 126/77 99 98.2 Lab Test 03/22/25 15:43 Range/Units White Blood Count 4.8 4.4-10.8 10^3/uL Red Blood Count 4.42 4.0-5.20 10^6/uL Hemoglobin 12.6 12.2-16.2 g/dL Hematocrit 38.5 36.0-46.0 % Mean Corpuscular Volume 87.2 80.0-100.0 fL Mean Corpuscular Hemoglobin 28.5 28.0-32.0 pg Mean Corpuscular Hemoglobin Concent 32.7 32.0-36.0 g/dL Red Cell Distribution Width 13.7 11.8-14.3 % Platelet Count 241 140-450 10^3/uL Mean Platelet Volume 8.7 6.9-10.8 fL Neutrophils (%) (Auto) 37.0-80.0 % Lymphocytes (%) (Auto) 10.0-50.0 % Monocytes (%) (Auto) 0.0-12.0 % Basophils (%) (Auto) 0.0-2.0 % Neutrophils # (Auto) 1.6-8.6 10 ^3/uL Lymphocytes # (Auto) 0.4-5.4 10 ^3/uL Monocytes # (Auto) 0-1.3 10 ^3/uL Differential Total Cells Counted Pending Neutrophils % (Manual) Pending Band Neutrophils % (Manual) Pending Lymphocytes % (Manual) Pending Monocytes % (Manual) Pending Eosinophils % (Manual) Pending Basophils % (Manual) Pending Metamyelocytes % (manual) Pending Myelocytes % (Manual) Pending Promyelocytes % (Manual) Pending Blast Cells % (Manual) Pending Reactive Lymphocytes Pending Platelet Estimate Pending Sodium Level 142 136-145 mmol/L Potassium Level 3.8 3.5-5.1 mmol/L Chloride Level 104 98-107 mmol/L Carbon Dioxide Level 28 20-31 mmol/L Anion Gap 10 5-15 Blood Urea Nitrogen 9 9-23 mg/dL Creatinine 0.98 0.550-1.02 mg/dL Glomerular Filtration Rate Calc 71 >90 mL/min BUN/Creatinine Ratio 9.2 L 10.0-20.0 Serum Glucose 98 74-106 mg/dL Calcium Level 9.3 8.7-10.4 mg/dL Troponin I High Sensitivity < 3 L </=34 ng/L The patient's CBC is within normal limits The chemistry panel is within normal limits The troponin level is negative The chest x-ray is negative at this time The patient will follow up with the primary care doctor The patient will return to the emergency department's condition worsens. Images Reviewed?: Images reviewed and evaluated by me Time of 1ST Reevaluation: 16:00 Reevaluation 1ST: Unchanged Patient Education/Counseling: Diagnosis, Treatment, Prognosis, Need For Follow Up Family Education/Counseling: No Family Present SEPSIS Sepsis Screen Physician Orders Complete Blood Count (03/22/25 15:38) Electrocardigram (03/22/25 15:38) Chest Xray 1 View (03/22/25 15:38) Manual Differential (03/22/25 15:43) Vital Signs Date Time Temp Pulse Resp B/P (MAP) Pulse Ox O2 Delivery O2 Flow Rate FiO2 03/22/25 15:56 Room Air* 0 21 03/22/25 15:44 88 03/22/25 15:39 88 03/22/25 15:34 98.2 112 20 126/77 99 98.2 Laboratory Tests Test 03/22/25 15:43 White Blood Count 4.8 10^3/uL (4.4-10.8) Departure 1 Departure Time of Disposition: 16:30 Impression: Primary Impression: Near syncope Disposition: 01 HOME / SELF CARE / HOMELESS Condition: Fair Discharged With: Self Critical Care Note Critical Care Time?: No Stability Stability form required: No Heart Score Heart Score: Heart Score Response (Comments) Value History N/A 0 EKG N/A 0 Age N/A 0 Risk Factors N/A 0 Troponin N/A 0 Total 0 I personally scribed for JOSE MAR MD ([email or web address]) on 03/22/25 at 15:43. Electronically submitted by Norma Harrell ([email or web address]). I personally scribed for JOSE MAR MD ([email or web address]) on 03/22/25 at 15:44. Electronically submitted by Norma Harrell ([email or web address]). JOSE MAR MD Mar 22, 2025 15:43
[2025-03-22 16:00] LABS: Hematocrit 38.5 % (36.0-46.0); Hemoglobin 12.6 g/dL (12.2-16.2); Mean Corpuscular Hemoglobin 28.5 pg (28.0-32.0); Mean Corpuscular Volume 87.2 fL (80.0-100.0)
[2025-03-22 16:11] LABS: Chloride 104 mmol/L (98-107); Potassium 3.8 mmol/L (3.5-5.1); Sodium 142 mmol/L (136-145)
[2025-03-22 16:12] LABS: Anion Gap 10 (5-15); Calcium 9.3 mg/dL (8.7-10.4); Carbon Dioxide 28 mmol/L (20-31)
[2025-03-22 16:17] LABS: BUN/Creatinine Ratio 9.2 (10.0-20.0); Blood Urea Nitrogen 9 mg/dL (9-23); Glucose 98 mg/dL (74-106)
--- NOTE | 2025-03-22 16:17 | DVH ---
EXAM: XY CHEST XRAY 1 VIEW HISTORY: chest tightness COMPARISON: Upper images of CT scan of the abdomen dated 08/18/2024. TECHNIQUE: Frontal view of the chest was performed. FINDINGS: There is blunting of the left costophrenic angle with mild relative elevation of the left hemidiaphra gm, consistent with scarring as seen on prior CT scan. No pneumothorax, new infiltrates, or pulmonary edema. The heart is not enlarged. There is midthoracic dextroscoliosis. IMPRESSION: Left lung base Scarring without evidence of acute intrathoracic process.
[2025-03-22 16:33] LABS: RBC Morphology Normal; Total Cells Counted 100.0 (100)
[2025-03-22 16:37] VITALS: BP 118/75; PULSE 75; RESP 19; TEMP 98.4; O2SAT 98
--- NOTE | 2025-03-22 18:38 | ECG ---
[facility] Test Date: 2025-03-22 Test Time: 15:39:25 Pat Name: ADITHYA OBRIEN Department: ED Room: Gender: F Slip Caster: paco : 1975 Requested By: JOSE MAR Order Number: [id number] Reading MD: Measurements Intervals [place] Rate: 88 P: 84 HI: 137 QRS: -21 QRSD: 103 T: 66 QT: 371 QTc: 449 Interpretive Statements Sinus rhythm LAE, consider biatrial enlargement Borderline left axis deviation RSR' in V1 or V2, right VCD or RVH Borderline T abnormalities, anterior leads Please click the below link to view image of tracing.
== END 2025-03-22 16:37 | disposition home or self-care (01) ==
LOC: EEVIPCON 15:35 → ER 15:35
DX: R55 Syncope and collapse (principal); R20.2 Paresthesia of skin; I10 Essential (primary) hypertension; Z90.710 Acquired absence of both cervix and uterus
CPT/HCPCS: 36415; 71045; 80048; 84484; 85007; 85027; 93005